=== PATIENT | female | born 1955 | race Caucasian/White ===

== ENCOUNTER → 2016-08-20 | Outpatient (CLI) | payer OTHER ==
[~2016-08-20] MED LIST: ATOR-54 PO; BUPRTAB51 PO; CARV6.252 PO; CLC100 PO; CLON1TAB3 PO; ERGO50002 PO; FLUO40CA8 PO; GABA300C19 PO; GADAVIST IV PRN; LEVE500T PO; LEVO125T72 PO; OMEP40CA PO; ZOLP5TAB PO
--- NOTE | 2016-08-20 12:59 | DIAGNOSTIC IMAGING REPORT ---
MRI OF THE BRAIN WITHOUT AND WITH IV CONTRAST SEIZURE PROTOCOL CLINICAL HISTORY: Paroxysmal spells. Severe headaches. COMPARISON STUDY: Head CT April 16, 2008. TECHNIQUE: Utilizing a 1.5 Chiara magnet and dedicated coil, multiplanar, multiecho imaging of the brain was performed pre and postcontrast administration. IV administration of 10 mL of Gadavist contrast was uneventful. Thin cut coronal T2 imaging was performed according to seizure protocol. FINDINGS: This exam is mildly compromised by motion artifact. There are no areas of restricted diffusion to suggest acute infarct. No acute intracranial hemorrhage, midline shift or mass effect is present. Brain volume is normal. Ventricular system is normal. Basilar cisterns are patent. Flow-voids for the major intracranial vessels are present. There are no intracranial masses or areas of pathologic enhancement. There is no evidence for a Chiari 1 malformation. There are numerous small white matter T2 hyperintense foci predominantly within the bilateral frontal lobes. Calvarial signal is maintained. Orbits and sinuses are unremarkable. There is no MRI evidence for mesial temporal sclerosis. IMPRESSION: 1. No acute intracranial findings. 2. No intracranial masses or pathologic enhancement. 3. Numerous white matter T2 hyperintense foci. These are nonspecific and could reflect small vessel disease or sequela of migraine headaches. The appearance is not suggestive of multiple sclerosis. Electronically signed by: Randolph Solis M.D. 08/20/2016 12:57 PM Dictated Date/Time: 08/20/2016 12:51 PM
== END | disposition home or self-care (01) ==
LOC: C.MRIBC 11:04
PROVIDERS: ATTEND Psychiatry & Neurology Neurology
DX: R68.89 Other general symptoms and signs (principal); R90.82 White matter disease, unspecified

== ENCOUNTER → 2016-08-20 | Outpatient (CLI) | payer OTHER ==
[~2016-08-20] MED LIST changes: -GADAVIST IV PRN
--- NOTE | 2016-08-21 13:53 | EEG Procedure Note ---
EEG Procedure Note Date of Service Aug 20, 2016. Start / End Times Start Time: 1:27 PM End Time: 1:47 PM Referring Physician ARGENIS Almanza History 61-year-old female with paroxysmal spells and memory trouble. EEG for further evaluation of possible seizure etiology. Pertinent Home Medications: [facility] Home Medication List Scheduled Atorvastatin (Lipitor), 20 MG PO DAILY Bupropion (Wellbutrin-Xl), 300 MG PO DAILY Carvedilol (Coreg), 6.25 MG PO BID Clonazepam (Klonopin), 1 MG PO HS Docusate Sodium (Docusate Sodium), 100 MG PO BID Ergocalciferol (Drisdol), 50,000 UNIT PO WK Fluoxetine (Prozac), 80 MG PO DAILY Gabapentin (Neurontin), 300 MG PO DAILY Levetiractam (Levetiracetam), 500 MG PO BID Levothyroxine Sodium (Synthroid), 125 MCG PO DAILY Omeprazole (Prilosec), 40 MG PO DAILY Scheduled PRN Zolpidem Tartrate (Ambien), 5-10 MG PO HS PRN for Sleep Description This is a 21 electrode EEG with a single channel dedicated to limited EKG. The electrodes were placed in accordance with the International 10-20 system. At the start of the recording the patient was in an awake state. Background was well organized and composed of symmetric mixed alpha and beta frequencies. There was a symmetric well-formed moderate amplitude 8-9 Hz posterior dominant rhythm that was reactive to eye opening and closure. Hyperventilation was not done. Intermittent photic stimulation at various frequencies produced no abnormalities. There was no state changes or sleep transients. Interpretation This is a normal awake only routine EEG. There was no electrographic seizures or epileptiform discharges. Clinical Correlation A normal EEG does not rule out epilepsy if there is a strong clinical suspicion.
== END | disposition home or self-care (01) ==
LOC: C.NEUR 12:55
PROVIDERS: ATTEND Psychiatry & Neurology Neurology
DX: R68.89 Other general symptoms and signs (principal)

== ENCOUNTER → 2017-03-05 | Outpatient (CLI) | payer OTHER ==
--- NOTE | 2017-03-06 07:55 | MAMMOGRAPHY REPORT ---
BILATERAL DIGITAL SCREENING MAMMOGRAM TOMOSYNTHESIS WITH CAD: 03/05/2017 CLINICAL HISTORY: Routine screening. Patient has no complaints. TECHNIQUE: Breast tomosynthesis in addition to standard 2D mammography was performed. Current study was also evaluated with a Computer Aided Detection (CAD) system. COMPARISON: Comparison is made to exam dated: 07/07/2014 mammogram - [facility]. BREAST COMPOSITION: There are scattered areas of fibroglandular density in both breasts. FINDINGS: No suspicious mass, architectural distortion or cluster of microcalcifications is seen. IMPRESSION: ACR BI-RADS CATEGORY 1: NEGATIVE There is no mammographic evidence of malignancy. A 1 year screening mammogram is recommended. The pa tient will receive written notification of the results. Approximately 10% of breast cancers are not detected with mammography. A negative mammographic report should not delay biopsy if a clinically suggestive mass is present. Yana Cheney M.D. ay/:03/05/2017 18:25:03 Senior Oracle Developer: Neda NORMAN(Tonya)(Meredith), [facility] letter sent: Normal 1/2 BI-RADS Code: ACR BI-RADS Category 1: Negative
== END | disposition home or self-care (01) ==
LOC: C.MAMM 14:25
PROVIDERS: ATTEND Physician Assistant
DX: Z12.31 Encounter for screening mammogram for malignant neoplasm of breast (principal)

== ENCOUNTER → 2017-03-05 | Outpatient (CLI) | payer OTHER ==
[2017-03-05 16:37] LABS: HEMATOCRIT 38.8 % (37-47); MEAN CELL VOLUME 88.2 fL (80-100); MEAN CORPUSCULAR HEMOGLOBIN 29.8 pg (25-34); MEAN CORPUSCULAR HGB CONC 33.8 g/dl (32-36); MEAN PLATELET VOLUME 10.2 fL (7.4-10.4); PLATELET COUNT 233 K/uL (130-400); WHITE BLOOD COUNT 7.29 K/uL (4.8-10.8)
[2017-03-05 16:45] LABS: URINE APPEARANCE CLEAR (CLEAR); URINE BILIRUBIN NEG (NEG); URINE COLOR DK YELLOW; URINE NITRITE NEG (NEG); UROBILINOGEN NEG (NEG)
[2017-03-05 16:57] LABS: MANUAL MICROSCOPIC REQUIRED? NO; REVIEW REQ? NO
[2017-03-05 17:09] LABS: ALT/SGPT 28 U/L (12-78); BLOOD UREA NITROGEN 13 mg/dl (7-18); CALCIUM 8.4 mg/dl (8.5-10.1); CARBON DIOXIDE 31 mmol/L (21-32); CHLORIDE 102 mmol/L (98-107); CHOLESTEROL 190 mg/dl (0-200); CREATININE 0.76 mg/dl (0.60-1.20); GLUCOSE 79 mg/dl (70-99); POTASSIUM 3.5 mmol/L (3.5-5.1); SODIUM 139 mmol/L (136-145); URIC ACID 5.5 mg/dl (2.6-7.2)
[2017-03-05 17:19] LABS: ALB/GLOB RATIO 0.8 (0.9-2); ALKALINE PHOSPHATASE 72 U/L (45-117); AST/SGOT 26 U/L (15-37); CHOLESTEROL/HDL RATIO 3.5; HDL CHOLESTEROL 54 mg/dl; LDL CHOLESTEROL CALCULATED 111 mg/dl; TRIGLYCERIDES 127 mg/dl (0-150); VERY LOW DENSITY LIPOPROT CALC 25 mg/dl
== END | disposition home or self-care (01) ==
LOC: C.LAB1850 14:56
PROVIDERS: ATTEND Physician Assistant
DX: G89.4 Chronic pain syndrome (principal); M54.5 Low back pain; K21.0 Gastro-esophageal reflux disease with esophagitis; E03.9 Hypothyroidism, unspecified; E55.9 Vitamin D deficiency, unspecified; F44.5 Conversion disorder with seizures or convulsions; F41.1 Generalized anxiety disorder

== ENCOUNTER 2017-07-01 21:17 | Inpatient (IN) | payer OTHER ==
[~2017-07-01] VITALS: Ht 167.6 cm; Wt 114.1 kg
[~2017-07-01 21:17] MED LIST changes: +CLON1TAB10 PO; -CLON1TAB3 PO; -ERGO50002 PO; +GABA-1218 PO; -GABA300C19 PO; +[UNRECOGNIZED DRUG - CODE] PO
[2017-07-01] MEDS ORDERED: SODIUM CHLORIDE 0.9% 1000ML 1,000 ML IV STA ×2 (21:38→23:57)
[2017-07-01] MEDS ORDERED: LIDOCAINE HCL 2% VISC SOLN 20 ML UDC PO STA (21:38)
[2017-07-01] MEDS ORDERED: ONDANSETRON INJ 2 MG/ML 2 ML VIAL IV STA (21:38)
[2017-07-01] MEDS ORDERED: ALUMINUM/MAGNESIUM SUSP 30 ML UDC PO STA (21:38)
[2017-07-01] MEDS ORDERED: HYDROmorphone INJ 1 MG/ML SYR IV STA ×2 (21:38→23:26)
[2017-07-01] MEDS ORDERED: OPTIRAY 320 IV PRN (21:45)
[2017-07-01 22:05] LABS: BASO % 0.2 %; BASO ABS # 0.03 K/uL (0-0.2); EOS ABS # 0.15 K/uL (0-0.5); HEMATOCRIT 42.7 % (37-47); HEMOGLOBIN 14.2 g/dL (12.0-16.0); IG# 0.03 K/uL (0.00-0.02); LYMPH % 13.8 %; LYMPH ABS # 1.99 K/uL (1.2-3.4); MEAN CELL VOLUME 88.6 fL (80-100); MEAN CORPUSCULAR HEMOGLOBIN 29.5 pg (25-34); MEAN CORPUSCULAR HGB CONC 33.3 g/dl (32-36); MEAN PLATELET VOLUME 10.1 fL (7.4-10.4); MONO % 6.4 %; MONO ABS # 0.92 K/uL (0.11-0.59); NEUT % 78.4 %; NEUT ABS # 11.35 K/uL (1.4-6.5); PLATELET COUNT 265 K/uL (130-400); RED CELL DISTRIBUTION WIDTH CV 13.5 % (11.5-14.5); WHITE BLOOD COUNT 14.47 K/uL (4.8-10.8)
--- NOTE | 2017-07-01 22:05 | DIAGNOSTIC IMAGING REPORT ---
CHEST ONE VIEW PORTABLE CLINICAL HISTORY: 62 years-old Female presenting with epigastric pain. TECHNIQUE: Portable upright AP view of the chest was obtained. COMPARISON: 06/03/2015. FINDINGS: Atherosclerosis of the aortic arch. Cardiac silhouette normal in size. Lungs and pleural spaces clear. Osseous structures normal. Upper abdomen normal. IMPRESSION: 1. No acute cardiopulmonary disease. Electronically signed by: Damian Gómez M.D. 07/01/2017 10:04 PM Dictated Date/Time: 07/01/2017 10:03 PM
[2017-07-01] MEDS ORDERED: CLR10 PO (22:10)
[2017-07-01] MEDS ORDERED: LEVE500T13 PO (22:10)
[2017-07-01] MEDS ORDERED: DOCU100C31 PO (22:10)
[2017-07-01] MEDS ORDERED: ATV/1 PO (22:10)
[2017-07-01] MEDS ORDERED: OMEP40CA41 PO (22:10)
[2017-07-01 22:27] LABS: ALBUMIN 3.9 gm/dl (3.4-5.0); ALT/SGPT 22 U/L (12-78); BLOOD UREA NITROGEN 27 mg/dl (7-18); CALCIUM 8.8 mg/dl (8.5-10.1); CARBON DIOXIDE 30 mmol/L (21-32); CREATININE 1.08 mg/dl (0.60-1.20); GLUCOSE 110 mg/dl (70-99); POTASSIUM 3.7 mmol/L (3.5-5.1); SODIUM 136 mmol/L (136-145)
[2017-07-01 22:32] LABS: ALKALINE PHOSPHATASE 85 U/L (45-117); AST/SGOT 19 U/L (15-37); LIPASE 4734 U/L (73-393); TOTAL PROTEIN 8.7 gm/dl (6.4-8.2)
--- NOTE | 2017-07-01 23:07 | DIAGNOSTIC IMAGING REPORT ---
ABD/PELVIS IV CONTRAST ONLY CLINICAL HISTORY: 62 years-old Female presenting with severe mid abd pain. TECHNIQUE: Multidetector CT of the abdomen and pelvis was performed after the administration of intravenous contrast. IV contrast: 93 mL of Optiray 320. A dose lowering technique was used consistent with the principles of ALARA (as low as reasonably achievable). COMPARISON: 06/11/2016. CT DOSE (mGy.cm): The estimated cumulative dose is 1654.55 mGy.cm. FINDINGS: Healthcare Project Manager topogram: Cholecystectomy clips. Posterior lumbar fusion hardware. Lung bases: Minimal basilar opacities, likely atelectasis. Multichamber enlargement of the heart. No pericardial or pleural effusion. Liver: Normal morphology. No liver lesion. Patent hepatic vasculature. Biliary: Mild biliary ductal prominence likely a reservoir effect in the post cholecystectomy state. Gallbladder surgically absent. Pancreas: Fat stranding along the pancreatic head. Remainder of the pancreatic parenchyma is mildly atrophic. No peripancreatic fluid collection. Spleen: Normal. Adrenal glands: Normal. Kidneys and ureters: Few hypodensities in the right kidney likely cysts. Punctate nonobstructing calculus in the left kidney. No hydronephrosis. Ureters normal. Bladder: Incompletely evaluated secondary to underdistention. Pelvic organs: Uterus surgically absent. Bowel: Diverticulosis of the proximal sigmoid colon. The appendix is normal. No bowel obstruction. Peritoneal cavity: No free fluid or intraperitoneal gas. Lymph nodes: No enlarged lymph nodes in the abdomen or pelvis. Vasculature: Atherosclerosis of the normal caliber abdominal aorta. IVC patent. Abdominal wall: Postsurgical changes of the infraumbilical midline ventral abdominal wall. Musculoskeletal: Extensive posterior fusion hardware of the lower lumbar spine. IMPRESSION: 1. Evidence of interstitial edematous pancreatitis. No acute peripancreatic fluid collection. No commencing evidence of necrosis. Correlate with lipase. 2. Diverticulosis. No evidence of diverticulitis. Electronically signed by: Damian Gómez M.D. 07/01/2017 11:06 PM Dictated Date/Time: 07/01/2017 11:00 PM
[2017-07-02] VITALS (8 sets, daily range): BP systolic 120–169; BP diastolic 76–99; PULSE 73–90; TEMP 36.5–37.1; O2SAT 91–96; Ht 167.6 cm; Wt 114.1 kg
--- NOTE | 2017-07-02 00:32 | EMERGENCY ROOM VISIT NOTE ---
History First contact with patient: 21:29 Chief Complaint: GI ASSESSMENT Stated Complaint: BACK PAIN, PAIN THAT GOES TO FRONT Nursing Triage Summary: pain in stomach, back, and sides. started last night and has gotten worse History of Present Illness The patient is a 62 year old female who presents to the Emergency Room with complaints of severe abdominal pain that radiates to her back for the past day steadily getting worse currently 12 out of 10. Describes as severe, ranging in severity nothing makes it better or worse. Negative colonoscopy and endoscopies in the past. Status post cholecystectomy in the past. Patient does not drink alcohol. Patient denies chest pain, dyspnea, fever, chills, vomiting, diarrhea, urinary symptoms. Patient with some nausea. No bad food exposure. Patient's 3 months ago. Review of Systems See HPI for pertinent positives & negatives. A total of 10 systems reviewed and were otherwise negative. Past Medical/Surgical History Medical Problems: (1) Abdominal pain (2) Back pain (3) Cardiomegaly (4) Hypertension (5) Nausea & vomiting Surgical Problems: (1) H/O thyroidectomy Family History Cancer Diabetes mellitus Heart disease Hypertension Social History Smoking Status: Former Smoker Alcohol Use: none Drug Use: none Marital Status: Housing Status: lives with family Occupation Status: employed Current/Historical Medications Scheduled Atorvastatin (Lipitor), 20 MG PO DAILY Bupropion (Wellbutrin-Xl), 300 MG PO DAILY Carvedilol (Coreg), 6.25 MG PO BID Docusate Sodium (Docusate Sodium), 100 MG PO BID Ergocalciferol (Drisdol), 50,000 INTER.UNIT PO WK Fluoxetine (Prozac), 80 MG PO HS Levetiracetam (Keppra), 500 MG PO BID Levothyroxine Sodium (Synthroid), 125 MCG PO DAILY Loratadine (Claritin), 10 MG PO DAILY Omeprazole (Prilosec), 40 MG PO DAILY Scheduled PRN Lorazepam (Ativan), 1 MG PO TID PRN for Anxiety Physical Exam Vital Signs Date Time Temp Pulse Resp B/P (MAP) Pulse Ox O2 Delivery O2 Flow Rate FiO2 07/01/17 23:22 78 16 162/94 96 Room Air 07/01/17 22:08 93 Room Air 07/01/17 21:21 36.7 88 18 163/99 97 Room Air Physical Exam VITALS: Vitals are noted on the nurse's note and reviewed by myself. Vital signs hypertensive GENERAL: Pleasant female screaming in pain nondiaphoretic, well-developed well- nourished. SKIN: The skin was without rashes, erythema, edema, or bruising. There is no tenting of the skin. Capillary reflex less than 2 seconds. HEAD: Normocephalic atraumatic. EARS: External auditory canals clear, tympanic membranes pearly espinoza without erythema or effusion bilaterally. EYES: Pupils equal round and reactive to light and accommodation. Conjunctivae without injection, sclerae without icterus. Extraocular movements intact. NOSE: Patent, turbinates without inflammation or discharge. MOUTH: Mucous membranes moist. Pharynx without erythema or exudate. Uvula midline. Airway patent. Tongue does not deviate. NECK: Supple without nuchal rigidity. No lymphadenopathy. No thyromegaly. Cervical spine is nontender. No JVD. HEART: Regular rate and rhythm LUNGS: Clear to auscultation bilaterally without wheezes, rales or rhonchi. No dullness to percussion. No retractions or accessory muscle use. ABDOMEN: Positive bowel sounds x 4. Normal tympanic percussion. Soft, diffusely tender to palpation, protuberant, obese, no CVA tenderness, without masses or organomegaly. Pruett sign negative. No guarding or rebound tenderness. MUSCULOSKELETAL: No muscle atrophy, erythema, noted. NEURO: Patient was alert and oriented to person place and time. Normal sensation to light and sharp touch. No focal neurological deficits. Medical Decision & Procedures Laboratory Results 07/01/17 21:50 Red Blood Count 4.82, Mean Corpuscular Volume 88.6, Mean Corpuscular Hemoglobin 29.5, Mean Corpuscular Hemoglobin Concent 33.3, Mean Platelet Volume 10.1, Neutrophils (%) (Auto) 78.4, Lymphocytes (%) (Auto) 13.8, Monocytes (%) (Auto) 6.4, Eosinophils (%) (Auto) 1.0, Basophils (%) (Auto) 0.2, Neutrophils # (Auto) 11.35, Lymphocytes # (Auto) 1.99, Monocytes # (Auto) 0.92, Eosinophils # (Auto) 0.15, Basophils # (Auto) 0.03 07/01/17 21:50 Test 07/01/17 21:50 07/01/17 21:54 White Blood Count 14.47 K/uL (4.8-10.8) Red Blood Count 4.82 M/uL (4.2-5.4) Hemoglobin 14.2 g/dL (12.0-16.0) Hematocrit 42.7 % (37-47) Mean Corpuscular Volume 88.6 fL (80-100) Mean Corpuscular Hemoglobin 29.5 pg (25-34) Mean Corpuscular Hemoglobin Concent 33.3 g/dl (32-36) Platelet Count 265 K/uL (130-400) Mean Platelet Volume 10.1 fL (7.4-10.4) Neutrophils (%) (Auto) 78.4 % Lymphocytes (%) (Auto) 13.8 % Monocytes (%) (Auto) 6.4 % Eosinophils (%) (Auto) 1.0 % Basophils (%) (Auto) 0.2 % Neutrophils # (Auto) 11.35 K/uL (1.4-6.5) Lymphocytes # (Auto) 1.99 K/uL (1.2-3.4) Monocytes # (Auto) 0.92 K/uL (0.11-0.59) Eosinophils # (Auto) 0.15 K/uL (0-0.5) Basophils # (Auto) 0.03 K/uL (0-0.2) RDW Standard Deviation 44.0 fL (36.4-46.3) RDW Coefficient of Variation 13.5 % (11.5-14.5) Immature Granulocyte % (Auto) 0.2 % Immature Granulocyte # (Auto) 0.03 K/uL (0.00-0.02) Urine Color YELLOW Urine Appearance CLOUDY (CLEAR) Urine pH 5.0 (4.5-7.5) Urine Specific [place] 1.032 (1.000-1.030) Urine Protein NEG (NEG) Urine Glucose (UA) NEG (NEG) Urine Ketones TRACE (NEG) Urine Occult Blood 1+ (NEG) Urine Nitrite NEG (NEG) Urine Bilirubin NEG (NEG) Urine Urobilinogen NEG (NEG) Urine Leukocyte Esterase NEG (NEG) Urine WBC (Auto) 1-5 /hpf (0-5) Urine RBC (Auto) 0-4 /hpf (0-4) Urine Hyaline Casts (Auto) 5-10 /lpf (0-5) Urine Epithelial Cells (Auto) >30 /lpf (0-5) Urine Bacteria (Auto) NEG (NEG) Urine Yeast (Auto) PRESENT (NONE PRSENT) Anion Gap 7.0 mmol/L (3-11) Est Creatinine Clear Calc Drug Dose 70.7 ml/min Estimated GFR () 64.6 Estimated GFR (Non- 55.8 BUN/Creatinine Ratio 25.2 (10-20) Calcium Level 8.8 mg/dl (8.5-10.1) Total Bilirubin 0.3 mg/dl (0.2-1) Direct Bilirubin < 0.1 mg/dl (0-0.2) Aspartate Amino Transf (AST/SGOT) 19 U/L (15-37) Alanine Aminotransferase (ALT/SGPT) 22 U/L (12-78) Alkaline Phosphatase 85 U/L (45-117) Bedside Troponin I < 0.030 ng/ml (0-0.045) Troponin I < 0.015 ng/ml (0-0.045) Total Protein 8.7 gm/dl (6.4-8.2) Albumin 3.9 gm/dl (3.4-5.0) Lipase 4734 U/L (73-393) Bedside Lactic Acid Venous 0.78 mmol/L (0.90-1.70) Medications Administered Medications (Trade) Dose Ordered Sig/Asiya Route Start Time Stop Time Status Last Admin Dose Admin Sodium Chloride 1,000 ml @ 999 mls/hr Q1H1M STAT IV 07/01/17 21:38 07/01/17 22:38 DC 07/01/17 21:53 999 MLS/HR Ondansetron HCl (Zofran Inj) 4 mg NOW STAT IV 07/01/17 21:38 07/01/17 21:41 DC 07/01/17 21:52 4 MG Hydromorphone HCl (Dilaudid Inj) 1 mg NOW STAT IV 07/01/17 21:38 07/01/17 21:41 DC 07/01/17 21:52 1 MG Lidocaine HCl (Viscous Lidocaine 2% Soln) 10 ml NOW STAT PO 07/01/17 21:38 07/01/17 21:41 DC 07/01/17 21:52 10 ML Al Hydroxide/Mg Hydroxide (Maalox Susp) 30 ml NOW STAT PO 07/01/17 21:38 07/01/17 21:41 DC 07/01/17 21:52 30 ML Hydromorphone HCl (Dilaudid Inj) 1 mg NOW STAT IV 07/01/17 23:26 07/01/17 23:27 DC 07/01/17 23:33 1 MG Sodium Chloride 1,000 ml @ 999 mls/hr Q1H1M STAT IV 07/01/17 23:57 07/02/17 00:57 07/01/17 23:57 999 MLS/HR ED Course Prior records/ancillary studies reviewed. Triage Nursing notes reviewed. The patient's history was concerning for abdominal pain. Differential diagnosis: Etiologies such as appendicitis, diverticulitis, cardiac, PUD, biliary pathology , UTI, pancreatitis, obstruction, mesenteric ischemia, aortic pathology, infections, inflammatory bowel disease, renal colic, as well as others were entertained. Physical examination findings: As above. ER treatment provided: Dilaudid, Zofran, IV fluids On reassessment the patient felt better. Diagnostics interpreted by me: ECG: Normal sinus, normal axis, no acute ST-T wave changes, rate of 85. Impression normal sinus interpreted by myself The labs revealed leukocytosis. Elevated lipase. Negative troponin. Negative lactic acid Imaging studies: ABD/PELVIS IV CONTRAST ONLY CLINICAL HISTORY: 62 years-old Female presenting with severe mid abd pain. TECHNIQUE: Multidetector CT of the abdomen and pelvis was performed after the administration of intravenous contrast. IV contrast: 93 mL of Optiray 320. A dose lowering technique was used consistent with the principles of ALARA (as low as reasonably achievable). COMPARISON: 06/11/2016. CT DOSE (mGy.cm): The estimated cumulative dose is 1654.55 mGy.cm. FINDINGS: Analytics Senior Manager topogram: Cholecystectomy clips. Posterior lumbar fusion hardware. Lung bases: Minimal basilar opacities, likely atelectasis. Multichamber enlargement of the heart. No pericardial or pleural effusion. Liver: Normal morphology. No liver lesion. Patent hepatic vasculature. Biliary: Mild biliary ductal prominence likely a reservoir effect in the post cholecystectomy state. Gallbladder surgically absent. Pancreas: Fat stranding along the pancreatic head. Remainder of the pancreatic parenchyma is mildly atrophic. No peripancreatic fluid collection. Spleen: Normal. Adrenal glands: Normal. Kidneys and ureters: Few hypodensities in the right kidney likely cysts. Punctate nonobstructing calculus in the left kidney. No hydronephrosis. Ureters normal. Bladder: Incompletely evaluated secondary to underdistention. Pelvic organs: Uterus surgically absent. Bowel: Diverticulosis of the proximal sigmoid colon. The appendix is normal. No bowel obstruction. Peritoneal cavity: No free fluid or intraperitoneal gas. Lymph nodes: No enlarged lymph nodes in the abdomen or pelvis. Vasculature: Atherosclerosis of the normal caliber abdominal aorta. IVC patent. Abdominal wall: Postsurgical changes of the infraumbilical midline ventral abdominal wall. Musculoskeletal: Extensive posterior fusion hardware of the lower lumbar spine. IMPRESSION: 1. Evidence of interstitial edematous pancreatitis. No acute peripancreatic fluid collection. No commencing evidence of necrosis. Correlate with lipase. 2. Diverticulosis. No evidence of diverticulitis. CHEST ONE VIEW PORTABLE CLINICAL HISTORY: 62 years-old Female presenting with epigastric pain. TECHNIQUE: Portable upright AP view of the chest was obtained. COMPARISON: 06/03/2015. FINDINGS: Atherosclerosis of the aortic arch. Cardiac silhouette normal in size. Lungs and pleural spaces clear. Osseous structures normal. Upper abdomen normal. IMPRESSION: 1. No acute cardiopulmonary disease. Electronically signed by: Damian Gómez M.D. Electronically signed by: Damian Gómez M.D. Consultation: A consultation was placed with the hospitalist, Dr. Rutledge. The case was discussed and diagnostics were reviewed. The patient was evaluated in the ER for further treatment. Exam and history seem consistent with acute pancreatitis. Patient was medicated as above. She felt better. She was still having severe pain though. She will be evaluated by medicine for possible admission. Patient does not drink alcohol. Status post cholecystectomy many years ago. By the evaluation outlined above emergent etiologies such as appendicitis, diverticulitis, PUD, biliary pathology, UTI, obstruction, mesenteric ischemia, aortic pathology, inflammatory bowel disease, renal colic, as well as others were deemed relatively unlikely. The pt informed about the findings as listed above. All questions were answered and pleased with the treatment. Case reviewed with my attending. The chart was completed utilizing [employer] voice recognition software. Grammatical errors, random word insertions, pronoun errors, and incomplete sentences are an occassional consequence of this system due to software limitations, ambient noise, and hardware issues. Any formal questions or concerns about the content, text, or information contained within the body of this dictation should be directly addressed to the physician medical assistant dermatology for clarification. Medical Decision As above Medication Reconcilliation Current Medication List: was personally reviewed by me Blood Pressure Screening Patient's blood pressure: Elevated blood pressure Blood pressure disposition: Elevated BP felt to be situational Impression Primary Impression: Pancreatitis Departure Information Dispostion Being Evaluated By Hospitalist Condition GOOD Referrals Jennifer. Billy E. PA-C (PCP) Patient Instructions My [facility] Problem Qualifiers Primary Impression: Pancreatitis Chronicity: acute Pancreatitis type: unspecified pancreatitis type Acute pancreatitis complication: unspecified Qualified Codes: K85.90 - Acute pancreatitis without necrosis or infection, unspecified
[2017-07-02] MEDS ORDERED: ACETAMINOPHEN 325 MG TAB PO PRN (00:45)
--- NOTE | 2017-07-02 01:30 | NUR ---
Admission: Received report from Brando RN. Pt. arrived to unit at approx. 01:10. Pt. A+Ox4. Ambulates with steady gait. Reports 8/10 abdominal pain. VSS on room air. Fall risk agreement and code word paperwork signed. Pt. oriented to room and call lr. Encouraged to ring for assistance OOB. Will continue to monitor.
[2017-07-02] MEDS: LORAZEPAM 1 MG TAB PO PRN ×3 (01:43→21:47)
[2017-07-02] MEDS: TRAMADOL HCL 50 MG TAB PO PRN ×3 (01:43→16:26)
[2017-07-02] MEDS ORDERED: NSS + 20MEQ KCL 1000ML 1,000 ML IV SCH (02:00)
[2017-07-02] MEDS: LEVETIRACETAM 500 MG TAB PO SCH ×3 (02:27→21:08)
[2017-07-02] MEDS: KETOROLAC TROMETHAMINE 30 MG/ML VIAL IV PRN ×3 (02:27→14:35)
--- NOTE | 2017-07-02 04:07 | History and Physical ---
History & Physical Date & Time of Service: Jul 02, 2017 at 03:59 Chief Complaint: Abdominal Pain, Pancreatitis Primary Care Physician: Sisi Billy.Charline PA-C History of Present Illness Source: patient, hospital records The patient is a 62-year-old female who presents to the emergency department with severe abdominal pain that radiates from her stomach to her back. She reports that the pain began 24 hours ago, and is accompanied by some nausea but no vomiting. She reports no questionable food intake. She has not had any recent travel or sick exposures that she is aware of. She has had normal colon colonoscopy and endoscopies in the past. She has had pancreatitis in the past with unknown cause, and is status post cholecystectomy. Past Medical/Surgical History Medical Problems: (1) Cardiomegaly Status: Chronic (2) Hypertension Status: Chronic Surgical Problems: (1) H/O thyroidectomy Status: Chronic Family History Cancer Diabetes mellitus Heart disease Hypertension Social History Smoking Status: Former Smoker Smokeless Tobacco Use: No Alcohol Use: none Drug Use: none Marital Status: Occupational Status: employed Immunizations History of Influenza Vaccine: Yes History of Tetanus Vaccine?: Yes History of Pneumococcal: Yes History of Hepatitis B Vaccine: No Multi-Drug Resistant Organisms History of MDRO: No Allergies Coded Allergies: No Known Allergies (Unverified , NONE, 06/10/16) Home Medications Scheduled Atorvastatin (Lipitor), 20 MG PO DAILY Bupropion (Wellbutrin-Xl), 300 MG PO DAILY Carvedilol (Coreg), 6.25 MG PO BID Docusate Sodium (Docusate Sodium), 100 MG PO BID Ergocalciferol (Drisdol), 50,000 INTER.UNIT PO WK Fluoxetine (Prozac), 80 MG PO HS Levetiracetam (Keppra), 500 MG PO BID Levothyroxine Sodium (Synthroid), 125 MCG PO DAILY Loratadine (Claritin), 10 MG PO DAILY Omeprazole (Prilosec), 40 MG PO DAILY Scheduled PRN Lorazepam (Ativan), 1 MG PO TID PRN for Anxiety Review of Systems The patient denies chest pain, palpitations, shortness of breath, cough, lower extremity swelling, sore throat, fevers, chills, sweats, vomiting, diarrhea or constipation, blood in urine or stool, dysuria, urinary frequency or urgency, lightheadedness , dizziness, headache, memory loss, loss of consciousness, rash, abnormal bruising or bleeding, imbalance, focal or generalized weakness, numbness or tingling in arms or legs, generalized arthralgias or myalgias, back or neck pain, or night sweats. The review of systems is otherwise negative other than for that already noted above, and at least 10 systems have been reviewed. Physical Exam Vital Signs Date Time Temp Pulse Resp B/P (MAP) Pulse Ox O2 Delivery O2 Flow Rate FiO2 07/02/17 01:30 36.7 73 16 134/83 92 Room Air 07/02/17 00:46 79 16 154/90 93 Room Air 07/01/17 23:22 78 16 162/94 96 Room Air 07/01/17 22:08 93 Room Air 07/01/17 21:21 36.7 88 18 163/99 97 Room Air The patient is awake, well-developed and adequately nourished, alert and oriented 3, normocephalic and atraumatic, lying in bed and in no acute distress status post pain medication. HEENT--PERRL, EOMI, mucous membranes and oropharynx dry. Neck--supple, no JVD or bruits, thyroid normal, trachea midline, no adenopathy. Heart--normal S1 and S2, no extra beats, no murmurs, rubs or gallops. Lungs--clear bilaterally with good air movement, no respiratory distress, no accessory muscle use. Abdomen--normal bowel sounds and soft, nontender and nondistended, no hernias or masses, no organomegaly. Extremities--no cyanosis, clubbing or edema. There are good distal pulses b/l. Dermatologic--normal skin turgor, normal color, warm and dry, no abnormal lymph nodes, no rash. Neurologic--cranial nerves II through XII grossly intact. Rheumatologic--normal range of motion. Psychiatric--normal affect. Diagnostics Laboratory Results Results Past 24 Hours Test 07/01/17 21:50 07/01/17 21:54 Range/Units White Blood Count 14.47 4.8-10.8 K/uL Red Blood Count 4.82 4.2-5.4 M/uL Hemoglobin 14.2 12.0-16.0 g/dL Hematocrit 42.7 37-47 % Mean Corpuscular Volume 88.6 80-100 fL Mean Corpuscular Hemoglobin 29.5 25-34 pg Mean Corpuscular Hemoglobin Concent 33.3 32-36 g/dl Platelet Count 265 130-400 K/uL Mean Platelet Volume 10.1 7.4-10.4 fL Neutrophils (%) (Auto) 78.4 % Lymphocytes (%) (Auto) 13.8 % Monocytes (%) (Auto) 6.4 % Eosinophils (%) (Auto) 1.0 % Basophils (%) (Auto) 0.2 % Neutrophils # (Auto) 11.35 1.4-6.5 K/uL Lymphocytes # (Auto) 1.99 1.2-3.4 K/uL Monocytes # (Auto) 0.92 0.11-0.59 K/uL Eosinophils # (Auto) 0.15 0-0.5 K/uL Basophils # (Auto) 0.03 0-0.2 K/uL RDW Standard Deviation 44.0 36.4-46.3 fL RDW Coefficient of Variation 13.5 11.5-14.5 % Immature Granulocyte % (Auto) 0.2 % Immature Granulocyte # (Auto) 0.03 0.00-0.02 K/uL Urine Color YELLOW Urine Appearance CLOUDY CLEAR Urine pH 5.0 4.5-7.5 Urine Specific [place] 1.032 1.000-1.030 Urine Protein NEG NEG Urine Glucose (UA) NEG NEG Urine Ketones TRACE NEG Urine Occult Blood 1+ NEG Urine Nitrite NEG NEG Urine Bilirubin NEG NEG Urine Urobilinogen NEG NEG Urine Leukocyte Esterase NEG NEG Urine WBC (Auto) 1-5 0-5 /hpf Urine RBC (Auto) 0-4 0-4 /hpf Urine Hyaline Casts (Auto) 5-10 0-5 /lpf Urine Epithelial Cells (Auto) >30 0-5 /lpf Urine Bacteria (Auto) NEG NEG Urine Yeast (Auto) PRESENT NONE PRSENT Sodium Level 136 136-145 mmol/L Potassium Level 3.7 3.5-5.1 mmol/L Chloride Level 99 98-107 mmol/L Carbon Dioxide Level 30 21-32 mmol/L Anion Gap 7.0 3-11 mmol/L Blood Urea Nitrogen 27 7-18 mg/dl Creatinine 1.08 0.60-1.20 mg/dl Est Creatinine Clear Calc Drug Dose 70.7 ml/min Estimated GFR () 64.6 Estimated GFR (Non- 55.8 BUN/Creatinine Ratio 25.2 10-20 Random Glucose 110 70-99 mg/dl Calcium Level 8.8 8.5-10.1 mg/dl Total Bilirubin 0.3 0.2-1 mg/dl Direct Bilirubin < 0.1 0-0.2 mg/dl Aspartate Amino Transf (AST/SGOT) 19 15-37 U/L Alanine Aminotransferase (ALT/SGPT) 22 12-78 U/L Alkaline Phosphatase 85 45-117 U/L Bedside Troponin I < 0.030 0-0.045 ng/ml Troponin I < 0.015 0-0.045 ng/ml Total Protein 8.7 6.4-8.2 gm/dl Albumin 3.9 3.4-5.0 gm/dl Lipase 4734 73-393 U/L Bedside Lactic Acid Venous 0.78 0.90-1.70 mmol/L Microbiology Results 07/01/17 Urine Culture, Received Pending Diagnostic Radiology Patient Name: JULIA ACUNA Unit Number: [id number] Dictated: 07/01/172202 Transcribed: 07/01/172202 PBS Printed Date/Time: [~ rep prt dt]/[~ rep prt tm] [~ rep ct labl] - [~ rep ct ivnm] [facility] [place] [address] Dictated: 07/01/172202 Transcribed: 07/01/172202 PBS Printed Date/Time: [~ rep prt dt]/[~ rep prt tm] [~ rep ct labl] - [~ rep ct ivnm] [~ rep ct add3]] CHEST ONE VIEW PORTABLE CLINICAL HISTORY: 62 years-old Female presenting with epigastric pain. TECHNIQUE: Portable upright AP view of the chest was obtained. COMPARISON: 06/03/2015. FINDINGS: Atherosclerosis of the aortic arch. Cardiac silhouette normal in size. Lungs and pleural spaces clear. Osseous structures normal. Upper abdomen normal. IMPRESSION: 1. No acute cardiopulmonary disease. Electronically signed by: Damian Gómez M.D. 07/01/2017 10:04 PM Dictated Date/Time: 07/01/2017 10:03 PM The status of this report is Signed. Draft = Not yet reviewed or approved by Radiologist. Signed = Reviewed and approved by Radiologist. <AttendingPhy></AttendingPhy> <FamilyPhy>No Doctor, Assigned</FamilyPhy> < PrimaryPhy>No Doctor, Assigned</PrimaryPhy> <UnitNumber>[id number]</UnitNumber> <VisitNumber>[id number]</VisitNumber> <PatientName>JULIA ACUNA</PatientName > <DateOfBirth>1955</DateOfBirth> <Location>C.EDB</Location> <ServiceDate> 07/01/17</ServiceDate> <MNE>ESINDI</MNE> <OrderingPhy>Missy Gonzalez PA-C</ OrderingPhy> <OrderingPhyMNE>f rep ord dr gilbert</OrderingPhyMNE> <DictatingPhyMNE> f rep dict dr gilbert</DictatingPhyMNE> <CCListMNE>f rep ct mne</CCListMNE> < AdmittingPhyMNE>f pt admit dr gilbert</AdmittingPhyMNE> <AttendingPhyMNE>f pt attend dr gilbert</AttendingPhyMNE> <ConsultingPhyMNE>f pt consult dr gilbert</ConsultingPhyMNE> <FamilyPhyMNE>f pt fam dr gilbert</FamilyPhyMNE> <OtherPhyMNE>f pt other dr gilbert</OtherPhyMNE> < PrimaryPhyMNE>f pt prim care dr gilbert</PrimaryPhyMNE> <ReferringPhyMNE>f pt referring dr gilbert</ReferringPhyMNE> Patient Name: JULIA ACUNA Unit Number: [id number] Dictated: 07/01/172299 Transcribed: 07/01/172299 PBS Printed Date/Time: [~ rep prt dt]/[~ rep prt tm] [~ rep ct labl] - [~ rep ct ivnm] [facility] [place] [address] Dictated: 07/01/172299 Transcribed: 07/01/172299 PBS Printed Date/Time: [~ rep prt dt]/[~ rep prt tm] [~ rep ct labl] - [~ rep ct ivnm] [~ rep ct add3]] ABD/PELVIS IV CONTRAST ONLY CLINICAL HISTORY: 62 years-old Female presenting with severe mid abd pain. TECHNIQUE: Multidetector CT of the abdomen and pelvis was performed after the administration of intravenous contrast. IV contrast: 93 mL of Optiray 320. A dose lowering technique was used consistent with the principles of ALARA (as low as reasonably achievable). COMPARISON: 06/11/2016. CT DOSE (mGy.cm): The estimated cumulative dose is 1654.55 mGy.cm. FINDINGS: Set Up Inspector topogram: Cholecystectomy clips. Posterior lumbar fusion hardware. Lung bases: Minimal basilar opacities, likely atelectasis. Multichamber enlargement of the heart. No pericardial or pleural effusion. Liver: Normal morphology. No liver lesion. Patent hepatic vasculature. Biliary: Mild biliary ductal prominence likely a reservoir effect in the post cholecystectomy state. Gallbladder surgically absent. Pancreas: Fat stranding along the pancreatic head. Remainder of the pancreatic parenchyma is mildly atrophic. No peripancreatic fluid collection. Spleen: Normal. Adrenal glands: Normal. Kidneys and ureters: Few hypodensities in the right kidney likely cysts. Punctate nonobstructing calculus in the left kidney. No hydronephrosis. Ureters normal. Bladder: Incompletely evaluated secondary to underdistention. Pelvic organs: Uterus surgically absent. Bowel: Diverticulosis of the proximal sigmoid colon. The appendix is normal. No bowel obstruction. Peritoneal cavity: No free fluid or intraperitoneal gas. Lymph nodes: No enlarged lymph nodes in the abdomen or pelvis. Vasculature: Atherosclerosis of the normal caliber abdominal aorta. IVC patent. Abdominal wall: Postsurgical changes of the infraumbilical midline ventral abdominal wall. Musculoskeletal: Extensive posterior fusion hardware of the lower lumbar spine. IMPRESSION: 1. Evidence of interstitial edematous pancreatitis. No acute peripancreatic fluid collection. No commencing evidence of necrosis. Correlate with lipase. 2. Diverticulosis. No evidence of diverticulitis. Electronically signed by: Damian Gómez M.D. 07/01/2017 11:06 PM Dictated Date/Time: 07/01/2017 11:00 PM The status of this report is Signed. Draft = Not yet reviewed or approved by Radiologist. Signed = Reviewed and approved by Radiologist. <AttendingPhy></AttendingPhy> <FamilyPhy>Jennifer. Billy E. PA-C</FamilyPhy> <PrimaryPhy>Jennifer. Billy E. PA-C</PrimaryPhy> <UnitNumber>[id number]</ UnitNumber> <VisitNumber>[id number]</VisitNumber> <PatientName>JULIA ACUNA</ PatientName> <DateOfBirth>1955</DateOfBirth> <Location>C.EDB</Location> < ServiceDate>07/01/17</ServiceDate> <MNE>ESINDI</MNE> <OrderingPhy>Missy Gonzalez PA-C</OrderingPhy> <OrderingPhyMNE>f rep ord dr gilbert</OrderingPhyMNE> < DictatingPhyMNE>f rep dict dr gilbert</DictatingPhyMNE> <CCListMNE>f rep ct mne</ CCListMNE> <AdmittingPhyMNE>f pt admit dr gilbert</AdmittingPhyMNE> <AttendingPhyMNE >f pt attend dr gilbert</AttendingPhyMNE> <ConsultingPhyMNE>f pt consult dr gilbert</ConsultingPhyMNE> <FamilyPhyMNE>f pt fam dr gilbert</FamilyPhyMNE> <OtherPhyMNE>f pt other dr gilbert</OtherPhyMNE> < PrimaryPhyMNE>f pt prim care dr gilbert</PrimaryPhyMNE> <ReferringPhyMNE>f pt referring dr gilbert</ReferringPhyMNE> EKG EKG shows normal sinus rhythm at 85 bpm, no acute ST-T changes, and no change compared to 06/01/2015 Impression Assessment and Plan Recurrent pancreatitis-- The patient was admitted for similar symptoms from June 10 to 06/13/2016. Place on full liquid diet as tolerated. Start pancrelipase 2 tabs by mouth 3 times a day with meals. Tylenol for mild pain or temperature, tramadol for moderate pain, Toradol IV for severe pain Of note, patient was on a Dilaudid WAX BALL MOLDER during last hospitalization Hypertension-- Continue carvedilol 6.25 mg by mouth twice a day Anxiety/depression--continue Wellbutrin XL 3 mg by mouth daily, fluoxetine 80 mg by mouth at bedtime. Lorazepam 1 mg by mouth 3 times a day when necessary anxiety. GERD/constipation-- Change omeprazole to pantoprazole per hospital formulary Continue Colace 100 mg by mouth twice a day Seizure disorder-- Continue Keppra 500 mg by mouth twice a day. Hyperlipidemia-- Continue atorvastatin 20 mg by mouth daily. Hypothyroidism--continue levothyroxine sodium at 125 g by mouth daily. Level of Care Med/Surg Advanced Directives Existing Advance Directive: No Existing Living Will: No Existing Power of Supervisor Speech: No Resuscitation Status FULL RESUSCITATION VTE Prophylaxis VTE Risk Assessment Done? Y/N: Yes Risk Level: Moderate Given or contraindicated: SCD's Social Service Consult None Apply
[2017-07-02] MEDS: PANCREAZE (LIPASE 10,500U) CAP PO SCH ×3 (06:23→16:26)
[2017-07-02] MEDS: LEVOTHYROXINE 125 MCG TAB PO SCH (06:23)
[2017-07-02] MEDS: PANTOprazole SOD 40 MG TAB PO SCH (07:59)
[2017-07-02] MEDS: LORATADINE 10 MG TAB PO SCH (07:59)
[2017-07-02] MEDS: BuPROPion XL 300 MG TABCR PO SCH (07:59)
[2017-07-02] MEDS: CARVEDILOL 6.25 MG TAB PO SCH ×2 (08:00→21:08)
[2017-07-02] MEDS: DOCUSATE SODIUM 100 MG CAP PO SCH ×2 (08:00→21:08)
[2017-07-02 09:37] LABS: BASO % 0.1 %; BASO ABS # 0.01 K/uL (0-0.2); EOS % 1.1 %; EOS ABS # 0.13 K/uL (0-0.5); HEMATOCRIT 37.5 % (37-47); HEMOGLOBIN 12.3 g/dL (12.0-16.0); IG# 0.03 K/uL (0.00-0.02); LYMPH % 9.6 %; LYMPH ABS # 1.12 K/uL (1.2-3.4); MEAN CELL VOLUME 89.1 fL (80-100); MEAN CORPUSCULAR HEMOGLOBIN 29.2 pg (25-34); MEAN CORPUSCULAR HGB CONC 32.8 g/dl (32-36); MEAN PLATELET VOLUME 9.6 fL (7.4-10.4); MONO % 5.9 %; MONO ABS # 0.69 K/uL (0.11-0.59); PLATELET COUNT 194 K/uL (130-400); RED CELL DISTRIBUTION WIDTH CV 13.8 % (11.5-14.5); RED CELL DISTRIBUTION WIDTH SD 44.9 fL (36.4-46.3); WHITE BLOOD COUNT 11.68 K/uL (4.8-10.8)
[2017-07-02 10:15] LABS: ALBUMIN 3.1 gm/dl (3.4-5.0); CALCIUM 7.8 mg/dl (8.5-10.1); CREATININE 0.84 mg/dl (0.60-1.20); TOTAL PROTEIN 7.2 gm/dl (6.4-8.2)
[2017-07-02] MEDS: LACTATED RINGER'S 1000ML 1,000 ML IV SCH ×3 (10:28→23:54)
--- NOTE | 2017-07-02 10:32 | NUR ---
A: Pt is doing well at this time, Morelia Shaw PA-C. here from [facility] and ordered change to IVF's from NS with 20mEq KCL at 40 ml/hr to LR at 150 ml/hr at present. Pt diet changed back to clear liquids and no c/o nausea or emesis noted. Pt I/O maintained. Oob and up to bathroom with staff supervision gait slow and steady. Pt sipping on donovan alberto and water and has been medicated with IV Toradol 30mg for pain management of pancreatitis and p.o. Ativan for anxiety. Continue to monitor pt, call lr at direct reach, hourly rounding maintained.
[2017-07-02 10:59] LABS: POTASSIUM 3.7 mmol/L (3.5-5.1)
--- NOTE | 2017-07-02 11:01 | Gastrointestinal Consultation ---
Gastrointestinal Consultation Date of Consultation: Jul 02, 2017 Attending Physician: Jemma Lowe Consulting Physician: Ganesh Okeefe Reason for Consultation: Pancreatitis History of Present Illness Patient is a 62 year old female w PMHx of cardiomegaly, HTN, dyslipidemia, constipation, Vit D deficiency, depression, hypothyroidism, GERD who presented to ED w c/o abd pain. Pain is sharp stabbing, radiating from mid epigastric to bilateral upper quadrants to back. She has associated nausea but no vomiting. Denies any bowel habit changes, fever, chills. Denies any sick contact, questionable food intake, travels recently. Upon evaluation, VS stable, labs showed leukocytosis w WBC 14K, H/H stable, UA ok, CMP unremarkable, normal LFTs but Lipase 4000s. CT abd/pelvis showed fat stranding on pancreas head area consistent w pancreatitis. She had similar pancreatitis episode about 1 yr ago. Is s/p cholecystectomy. Had EGD/EUS 08/[address] Beckman after her pancreatitis episode last June and study was grossly unremarkable except echogenous pancreas, non specific gastritis, no mention of divisum, cysts etc. She denies ETOH, tobacco uses, no new meds within last 1-3 months. She follows [facility], had been started on Pancrease in outpt setting. Past Medical/Surgical History Medical Problems: (1) Pancreatitis Status: Acute (2) Pancreatitis Status: Acute Past Medical History: See above. Past Surgical History: Cholecystectomy Thyroidectomy Family History Cancer Diabetes mellitus Heart disease Hypertension Social History Smoking Status: Former Smoker Alcohol Use: none Drug Use: none Marital Status: Housing Status: lives with family Occupation Status: employed Allergies Coded Allergies: No Known Allergies (Unverified , NONE, 06/10/16) Current Medications Home Meds and Scripts Medications Dose Route/Sig Max Daily Dose Days Date Category Dose Instructions Claritin (Loratadine) 10 Mg Tab 10 Mg PO DAILY 07/01/17 Reported Docusate Sodium 100 Mg Cap 100 Mg PO BID 07/01/17 Reported Ativan (Lorazepam) 1 Mg Tab 1 Mg PO TID PRN 07/01/17 Reported Keppra (Levetiracetam) 500 Mg Tab 500 Mg PO BID 07/01/17 Reported Prilosec (Omeprazole) 40 Mg Cap 40 Mg PO DAILY 07/01/17 Reported Prozac (Fluoxetine HCl) 40 Mg Cap 80 Mg PO HS 06/10/16 Reported Drisdol (Ergocalciferol) 50,000 Unit Cap 50,000 Inter.unit PO WK 06/03/15 Reported TAKE THIS MEDICATION EVERY SATURDAY Wellbutrin-Xl (Bupropion HCl) 300 Mg Tabcr 300 Mg PO DAILY 06/03/15 Reported Synthroid (Levothyroxine Sodium) 125 Mcg Tab 125 Mcg PO DAILY 06/03/15 Reported Lipitor (Atorvastatin) 20 Mg Tab 20 Mg PO DAILY 06/03/15 Reported Coreg (Carvedilol) 6.25 Mg Tab 6.25 Mg PO BID 06/03/15 Reported Review of Systems Constitutional: No fever, No chills Respiratory: No cough, No shortness of breath Cardiac: No chest pain Abdomen: + pain, + nausea, No vomiting, No GI bleeding Physical Exam Date Time Temp Pulse Resp B/P (MAP) Pulse Ox O2 Delivery O2 Flow Rate FiO2 07/02/17 08:00 94 Room Air 07/02/17 07:14 36.5 82 16 154/86 (108) 94 Room Air 07/02/17 01:30 36.7 73 16 134/83 92 Room Air 07/02/17 00:46 79 16 154/90 93 Room Air 07/01/17 23:22 78 16 162/94 96 Room Air 07/01/17 22:08 93 Room Air 07/01/17 21:21 36.7 88 18 163/99 97 Room Air General Appearance: WD/WN, no apparent distress, + obese Eyes: normal inspection, PERRL, EOMI Neck: supple, no JVD, trachea midline Respiratory/Chest: normal breath sounds, no respiratory distress, no accessory muscle use Cardiovascular: regular rate, rhythm, no gallop, no murmur Abdomen: soft, + tenderness (epigastric area ) Extremities: normal inspection, no pedal edema, no calf tenderness Neurologic/Psych: alert, normal mood/affect, oriented x 3 Skin: normal color, no jaundice, no rash Laboratory Results Last 24 Hours Test 07/01/17 21:50 07/01/17 21:54 07/02/17 09:25 07/02/17 10:24 White Blood Count 14.47 K/uL 11.68 K/uL Red Blood Count 4.82 M/uL 4.21 M/uL Hemoglobin 14.2 g/dL 12.3 g/dL Hematocrit 42.7 % 37.5 % Mean Corpuscular Volume 88.6 fL 89.1 fL Mean Corpuscular Hemoglobin 29.5 pg 29.2 pg Mean Corpuscular Hemoglobin Concent 33.3 g/dl 32.8 g/dl Platelet Count 265 K/uL 194 K/uL Mean Platelet Volume 10.1 fL 9.6 fL Neutrophils (%) (Auto) 78.4 % 83.0 % Lymphocytes (%) (Auto) 13.8 % 9.6 % Monocytes (%) (Auto) 6.4 % 5.9 % Eosinophils (%) (Auto) 1.0 % 1.1 % Basophils (%) (Auto) 0.2 % 0.1 % Neutrophils # (Auto) 11.35 K/uL 9.70 K/uL Lymphocytes # (Auto) 1.99 K/uL 1.12 K/uL Monocytes # (Auto) 0.92 K/uL 0.69 K/uL Eosinophils # (Auto) 0.15 K/uL 0.13 K/uL Basophils # (Auto) 0.03 K/uL 0.01 K/uL RDW Standard Deviation 44.0 fL 44.9 fL RDW Coefficient of Variation 13.5 % 13.8 % Immature Granulocyte % (Auto) 0.2 % 0.3 % Immature Granulocyte # (Auto) 0.03 K/uL 0.03 K/uL Urine Color YELLOW Urine Appearance CLOUDY Urine pH 5.0 Urine Specific [place] 1.032 Urine Protein NEG Urine Glucose (UA) NEG Urine Ketones TRACE Urine Occult Blood 1+ Urine Nitrite NEG Urine Bilirubin NEG Urine Urobilinogen NEG Urine Leukocyte Esterase NEG Urine WBC (Auto) 1-5 /hpf Urine RBC (Auto) 0-4 /hpf Urine Hyaline Casts (Auto) 5-10 /lpf Urine Epithelial Cells (Auto) >30 /lpf Urine Bacteria (Auto) NEG Urine Yeast (Auto) PRESENT Sodium Level 136 mmol/L 132 mmol/L Potassium Level 3.7 mmol/L mmol/L Chloride Level 99 mmol/L 102 mmol/L Carbon Dioxide Level 30 mmol/L 27 mmol/L Anion Gap 7.0 mmol/L 3.0 mmol/L Blood Urea Nitrogen 27 mg/dl 22 mg/dl Creatinine 1.08 mg/dl 0.84 mg/dl Est Creatinine Clear Calc Drug Dose 70.7 ml/min 91.3 ml/min Estimated GFR () 64.6 87.6 Estimated GFR (Non- 55.8 75.5 BUN/Creatinine Ratio 25.2 26.6 Random Glucose 110 mg/dl 110 mg/dl Calcium Level 8.8 mg/dl 7.8 mg/dl Total Bilirubin 0.3 mg/dl 0.5 mg/dl Direct Bilirubin < 0.1 mg/dl mg/dl Aspartate Amino Transf (AST/SGOT) 19 U/L U/L Alanine Aminotransferase (ALT/SGPT) 22 U/L 22 U/L Alkaline Phosphatase 85 U/L 70 U/L Bedside Troponin I < 0.030 ng/ml Troponin I < 0.015 ng/ml Total Protein 8.7 gm/dl 7.2 gm/dl Albumin 3.9 gm/dl 3.1 gm/dl Lipase 4734 U/L 2229 U/L Bedside Lactic Acid Venous 0.78 mmol/L Magnesium Level mg/dl Impression Patient is a 62 year old female admitted with pancreatitis. Had similar episode last year. Is s/p cholecystectomy, no ETOH, tobacco abuses, new meds. She had EGD/EUS eval 08/2016 w/o obvious findings for etiology of her pancreatitis but imaging suggestive of chronic pancreatitis. She follows with [facility]. Plan - LR @ 150ml/hr - NPO except sips and chips. - Pancrease per outpt dosing - Symptomatic management w analgesic and antiemetics prn. Try to limit narcotics to minimize risk for ileus development which can occur in pancreatitis as well. ATTESTATION: I have performed a history and physical examination of this patient and reviewed the electronic record. Specifically, on physical examination there is moderate epigastric tenderness without rebound. I have discussed the case with SERA Soto. The above note reflects my findings, conclusions, and recommendations. Ganesh Okeefe MD
[2017-07-02] MEDS ORDERED: HYDROmorphone INJ 0.5 MG/0.5 ML SYR ONE (11:21)
--- NOTE | 2017-07-02 11:23 | NUR ---
A: Pt medicated with 1 time dose of IV Dilaudid 0.5mg for pain in abdomen radiating to flank and lower back areas. Pt ivf's of LR started at 150 ml/hr per Dr. Okeefe/Morelia Shaw PA-C. Pt resting much better now she stated and is finally sleeping upon reassessment. I/O maintained. Continue to monitor pt closely, pt made NPO except for ice chips and sips with meds. Call lr at direct reach, hourly rounding maintained. Bed alarm on.
[2017-07-02] MEDS ORDERED: HYDROmorphone INJ 0.5 MG/0.5 ML SYR IV ONE (11:25)
[2017-07-02] MEDS ORDERED: NURSING VERBAL MED ORDER ONE (11:30)
[2017-07-02] MEDS: HYDROmorphone INJ 0.5 MG/0.5 ML SYR IV PRN ×4 (17:25→23:53)
--- NOTE | 2017-07-02 17:32 | Hospitalist Progress Note ---
Hospitalist Progress Note Date of Service Jul 02, 2017. Subjective Pt evaluation today including: conversation w/ patient Having severe pain, 06/16 right now despite receiving toradol and tramadol. Pain in epigastric region and radiates to the back. Denies CP or SOB. Is tearful relaying that her just about 3 months ago. She is receiving counseling once weekly, as well as support from the Hospice agency and her hindu All Other Systems: Reviewed and Negative Objective Vital Signs Date Time Temp Pulse Resp B/P (MAP) Pulse Ox O2 Delivery O2 Flow Rate FiO2 07/02/17 15:04 36.5 76 16 154/85 (108) 93 Room Air 07/02/17 11:23 36.6 76 16 120/76 (91) 93 Room Air 07/02/17 08:00 94 Room Air 07/02/17 07:14 36.5 82 16 154/86 (108) 94 Room Air 07/02/17 01:30 36.7 73 16 134/83 92 Room Air 07/02/17 00:46 79 16 154/90 93 Room Air 07/01/17 23:22 78 16 162/94 96 Room Air 07/01/17 22:08 93 Room Air 07/01/17 21:21 36.7 88 18 163/99 97 Room Air Physical Exam General Appearance: WD/WN, + mild distress, + obese Eyes: normal inspection, sclerae normal ENT: hearing grossly normal Neck: trachea midline Respiratory/Chest: lungs clear, normal breath sounds, no respiratory distress, no accessory muscle use Cardiovascular: regular rate, rhythm, no edema, no gallop, no murmur Abdomen: soft, no organomegaly, no pulsatile mass, + abnormal bowel sounds ( hypoactive), + tenderness (in epigastric region without guarding or rebound) Extremities: non-tender, normal inspection, no pedal edema, no calf tenderness Neurologic/Psychiatric: alert, oriented x 3, + pertinent finding (tearful at times talking about recently ) Skin: normal color, warm/dry, no rash Laboratory Results Last 24 Hours Test 07/01/17 21:50 07/01/17 21:54 07/02/17 09:25 07/02/17 10:24 White Blood Count 14.47 K/uL 11.68 K/uL Red Blood Count 4.82 M/uL 4.21 M/uL Hemoglobin 14.2 g/dL 12.3 g/dL Hematocrit 42.7 % 37.5 % Mean Corpuscular Volume 88.6 fL 89.1 fL Mean Corpuscular Hemoglobin 29.5 pg 29.2 pg Mean Corpuscular Hemoglobin Concent 33.3 g/dl 32.8 g/dl Platelet Count 265 K/uL 194 K/uL Mean Platelet Volume 10.1 fL 9.6 fL Neutrophils (%) (Auto) 78.4 % 83.0 % Lymphocytes (%) (Auto) 13.8 % 9.6 % Monocytes (%) (Auto) 6.4 % 5.9 % Eosinophils (%) (Auto) 1.0 % 1.1 % Basophils (%) (Auto) 0.2 % 0.1 % Neutrophils # (Auto) 11.35 K/uL 9.70 K/uL Lymphocytes # (Auto) 1.99 K/uL 1.12 K/uL Monocytes # (Auto) 0.92 K/uL 0.69 K/uL Eosinophils # (Auto) 0.15 K/uL 0.13 K/uL Basophils # (Auto) 0.03 K/uL 0.01 K/uL RDW Standard Deviation 44.0 fL 44.9 fL RDW Coefficient of Variation 13.5 % 13.8 % Immature Granulocyte % (Auto) 0.2 % 0.3 % Immature Granulocyte # (Auto) 0.03 K/uL 0.03 K/uL Urine Color YELLOW Urine Appearance CLOUDY Urine pH 5.0 Urine Specific [place] 1.032 Urine Protein NEG Urine Glucose (UA) NEG Urine Ketones TRACE Urine Occult Blood 1+ Urine Nitrite NEG Urine Bilirubin NEG Urine Urobilinogen NEG Urine Leukocyte Esterase NEG Urine WBC (Auto) 1-5 /hpf Urine RBC (Auto) 0-4 /hpf Urine Hyaline Casts (Auto) 5-10 /lpf Urine Epithelial Cells (Auto) >30 /lpf Urine Bacteria (Auto) NEG Urine Yeast (Auto) PRESENT Sodium Level 136 mmol/L 132 mmol/L Potassium Level 3.7 mmol/L mmol/L 3.7 mmol/L Chloride Level 99 mmol/L 102 mmol/L Carbon Dioxide Level 30 mmol/L 27 mmol/L Anion Gap 7.0 mmol/L 3.0 mmol/L Blood Urea Nitrogen 27 mg/dl 22 mg/dl Creatinine 1.08 mg/dl 0.84 mg/dl Est Creatinine Clear Calc Drug Dose 70.7 ml/min 91.3 ml/min Estimated GFR () 64.6 87.6 Estimated GFR (Non- 55.8 75.5 BUN/Creatinine Ratio 25.2 26.6 Random Glucose 110 mg/dl 110 mg/dl Calcium Level 8.8 mg/dl 7.8 mg/dl Total Bilirubin 0.3 mg/dl 0.5 mg/dl Direct Bilirubin < 0.1 mg/dl mg/dl 0.1 mg/dl Aspartate Amino Transf (AST/SGOT) 19 U/L U/L 17 U/L Alanine Aminotransferase (ALT/SGPT) 22 U/L 22 U/L Alkaline Phosphatase 85 U/L 70 U/L Bedside Troponin I < 0.030 ng/ml Troponin I < 0.015 ng/ml Total Protein 8.7 gm/dl 7.2 gm/dl Albumin 3.9 gm/dl 3.1 gm/dl Lipase 4734 U/L 2229 U/L Bedside Lactic Acid Venous 0.78 mmol/L Magnesium Level mg/dl 2.1 mg/dl Assessment and Plan This pt is a 62 yo female with a h/o pancreatitis, seizure disorder, obesity, chronic LBP, HTN, HL, anxiety/depression, hypothyroidism, and GERD, who presents with worsening epigastric pain, found to have acute pancreatitis. Her labs showed leukocytosis w WBC 14K, H/H stable, UA ok, CMP unremarkable, normal LFTs but Lipase 4000s. CT abd/pelvis showed fat stranding on pancreas head area consistent w pancreatitis. She had similar pancreatitis episode about 1 yr ago. Is s/p cholecystectomy. Had EGD/EUS 08/[address] Beckman after her pancreatitis episode last June and study was grossly unremarkable except echogenous pancreas, non specific gastritis, no mention of divisum, cysts etc. She denies ETOH, tobacco uses, no new meds within last 1-3 months. She follows [facility], had been started on Pancrease in outpt setting. Acute recurrent pancreatitis, with h/o colostomy for diverticulitis and reversal -->still with severe pain today although WBCs and lipase both trending downward. -continue pain control-toradol, tramadol, and add IV dilaudid as she continues with severe pain -keep NPO except sips and chips and adv as tolerated -continue LR for IVFs -antiemetics prn -continue Panrease enzymes when eating Chronic LBP s/p fusion-stable -continue gabapentin, lidocaine patch Hypertension--stable -continue carvedilol 6.25 mg by mouth twice a day. Anxiety/depression- with normal grief period due to recent of her - continue Wellbutrin XL 300 mg by mouth daily, fluoxetine 80 mg by mouth daily, and lorazepam -has routine outpt counseling, no evidence of SI here currently Seizure disorder--stable, no seizures since Fall 2015 -continue Keppra 500 mg by mouth twice a day -f/u with Neuro as outpt Hypercholesterolemia-- stable --atorvastatin on hold while with acute pancreatitis Hypothyroidism--last TSH 6.62 in 02/2017 -continue Levothyroxine sodium 125 g by mouth daily -check TSH in 2-3 weeks as outpt GERD--continue pantoprazole 40 mg by mouth daily DVT Proph-SCDs, Lovenox PPI Dispo- to home when stable FULL CODE
[2017-07-02 18:17] LABS: PTT PATIENT 27.7 SECONDS (21.0-31.0)
[2017-07-02] MEDS: ENOXAPARIN 40 MG/0.4 ML SYR SQ SCH (21:00)
[2017-07-02] MEDS: FLUOXETINE HCL 20 MG CAP PO SCH (21:08)
--- NOTE | 2017-07-02 21:56 | NUR ---
A: Pt arrived in 423 from 2N, alert and orientedx4, c/o abdominal pain and nausea, pain meds given, with LR ongoing at L FA, on NPO except sip, ice chips and meds, Lungs are clear and diminished at RA, with occasional non productive cough, Hypo active BS, tender and non distended abdomen,VSS, needs attended, independent in the room, call lr within reach. Will continue monitoring.
[2017-07-02] MEDS ORDERED: ONDANSETRON 4 MG TAB PO STA (22:48)
--- NOTE | 2017-07-03 01:36 | NUR ---
ID note: A/Ox4. Pain controlled with medication. OOB independently. Pt is NPO except sips and chips. Discharge plans uncertain at this time.
[2017-07-03] MEDS: HYDROmorphone INJ 0.5 MG/0.5 ML SYR IV PRN ×4 (01:56→12:39)
[2017-07-03] MEDS: KETOROLAC TROMETHAMINE 30 MG/ML VIAL IV PRN ×3 (03:03→17:15)
[2017-07-03] MEDS: LACTATED RINGER'S 1000ML 1,000 ML IV SCH ×3 (06:12→20:49)
[2017-07-03] MEDS: LEVOTHYROXINE 125 MCG TAB PO SCH (06:13)
[2017-07-03] MEDS: PANCREAZE (LIPASE 10,500U) CAP PO SCH ×2 (06:13→12:37)
[2017-07-03] MEDS: TRAMADOL HCL 50 MG TAB PO PRN ×3 (06:34→20:49)
[2017-07-03 07:05] LABS: BASO % 0.1 %; BASO ABS # 0.02 K/uL (0-0.2); EOS % 0.9 %; EOS ABS # 0.15 K/uL (0-0.5); HEMATOCRIT 37.7 % (37-47); HEMOGLOBIN 12.2 g/dL (12.0-16.0); IG# 0.05 K/uL (0.00-0.02); LYMPH % 7.3 %; LYMPH ABS # 1.18 K/uL (1.2-3.4); MEAN CELL VOLUME 88.7 fL (80-100); MEAN CORPUSCULAR HEMOGLOBIN 28.7 pg (25-34); MEAN CORPUSCULAR HGB CONC 32.4 g/dl (32-36); MEAN PLATELET VOLUME 9.6 fL (7.4-10.4); MONO % 7.9 %; MONO ABS # 1.27 K/uL (0.11-0.59); NEUT % 83.5 %; PLATELET COUNT 191 K/uL (130-400); RED CELL DISTRIBUTION WIDTH CV 13.3 % (11.5-14.5); RED CELL DISTRIBUTION WIDTH SD 43.5 fL (36.4-46.3); WHITE BLOOD COUNT 16.07 K/uL (4.8-10.8)
[2017-07-03 07:35] VITALS: BP 130/80; PULSE 84; TEMP 36.6; O2SAT 95
[2017-07-03] MEDS: DOCUSATE SODIUM 100 MG CAP PO SCH ×2 (07:37→20:50)
[2017-07-03] MEDS: PANTOprazole SOD 40 MG TAB PO SCH (07:37)
[2017-07-03] MEDS: CARVEDILOL 6.25 MG TAB PO SCH ×2 (07:37→20:50)
[2017-07-03] MEDS: LEVETIRACETAM 500 MG TAB PO SCH ×2 (07:37→20:51)
[2017-07-03] MEDS: LORATADINE 10 MG TAB PO SCH (07:37)
[2017-07-03] MEDS: BuPROPion XL 300 MG TABCR PO SCH (07:37)
[2017-07-03 07:46] LABS: ALBUMIN 2.9 gm/dl (3.4-5.0); CREATININE 0.8 mg/dl (0.60-1.20); POTASSIUM 3.9 mmol/L (3.5-5.1); TOTAL PROTEIN 7.1 gm/dl (6.4-8.2)
--- NOTE | 2017-07-03 11:10 | Gastroenterology Progress Note ---
Progress Note Date of Service: Jul 03, 2017 Subjective Pt evaluation today including: conversation w/ patient, physical exam, chart review, lab review, review of inpatient medication list Pt laying in bed, awake. She reports "pain is unbearable" but then said it's better and in fact on abd palpation she wasn't grimacing/wincing like she did yesterday. Wants to try liquid foods. Lipase is decreasing. WBC up to 16K Review of Systems Constitutional: No fever, No chills Respiratory: No cough, No shortness of breath Cardiac: No chest pain Abdomen: + pain (better), No nausea, No vomiting Medications Current Inpatient Medications Medications (Trade) Dose Ordered Sig/Asiya Route Start Time Stop Time Status Last Admin Dose Admin Ioversol (Optiray 320) 100 ml UD PRN IV 07/01/17 21:45 07/05/17 21:44 Acetaminophen (Tylenol Tab) 650 mg Q4H PRN PO 07/02/17 00:45 08/01/17 00:44 Bupropion HCl (Wellbutrin-Xl Tab) 300 mg DAILY PO 07/02/17 09:00 08/01/17 08:59 07/03/17 07:37 300 MG Carvedilol (Coreg Tab) 6.25 mg BID PO 07/02/17 09:00 08/01/17 08:59 07/03/17 07:37 6.25 MG Docusate Sodium (coLACE CAP) 100 mg BID PO 07/02/17 09:00 08/01/17 08:59 07/03/17 07:37 100 MG Fluoxetine HCl (Prozac Cap) 80 mg HS PO 07/02/17 21:00 08/01/17 20:59 07/02/17 21:08 80 MG Levetiracetam (Keppra Tab) 500 mg BID PO 07/02/17 09:00 08/01/17 08:59 07/03/17 07:37 500 MG Levothyroxine Sodium (Synthroid Tab) 125 mcg DAILYBB PO 07/02/17 06:30 08/01/17 06:29 07/03/17 06:13 125 MCG Loratadine (Claritin Tab) 10 mg DAILY PO 07/02/17 09:00 08/01/17 08:59 07/03/17 07:37 10 MG Lorazepam (Ativan Tab) 1 mg TID PRN PO 07/02/17 00:45 08/01/17 00:44 07/02/17 21:47 1 MG Pantoprazole Sodium (Protonix Tab) 40 mg QAM PO 07/02/17 09:00 08/01/17 08:59 07/03/17 07:37 40 MG Amylase/Lipase/ Protease (Pancreaze (Lipase 10,500U) Cap) 2 cap AC PO 07/02/17 06:30 08/01/17 07:59 07/03/17 06:13 2 CAP Tramadol HCl (Ultram Tab) 50 mg Q4H PRN PO 07/02/17 00:45 08/01/17 00:44 07/03/17 06:34 50 MG Ketorolac Tromethamine (Toradol Inj) 30 mg Q6H PRN IV 07/02/17 00:45 07/07/17 00:44 07/03/17 09:50 30 MG Lactated Ringer's 1,000 ml @ 150 mls/hr Q6H40M IV 07/02/17 10:15 08/01/17 10:14 07/03/17 06:12 150 MLS/HR Hydromorphone HCl (Dilaudid Inj) 0.5 mg Q2H PRN IV 07/02/17 17:15 07/16/17 17:14 07/03/17 07:36 0.5 MG Enoxaparin Sodium (Lovenox Inj) 40 mg HS SQ 07/02/17 21:00 08/01/17 20:59 Objective Vital Signs Date Time Temp Pulse Resp B/P (MAP) Pulse Ox O2 Delivery O2 Flow Rate FiO2 07/03/17 07:35 36.6 84 18 130/80 (97) 95 07/02/17 23:58 Room Air 07/02/17 22:58 37.1 90 18 140/79 (99) 93 Room Air 07/02/17 22:48 88 130/81 (97) 91 Room Air 07/02/17 19:46 36.8 84 18 169/99 (122) 96 Room Air 07/02/17 16:00 Room Air 07/02/17 15:04 36.5 76 16 154/85 (108) 93 Room Air 07/02/17 11:23 36.6 76 16 120/76 (91) 93 Room Air Physical Exam General Appearance: WD/WN, no apparent distress, + obese Eyes: normal inspection, PERRL, EOMI Neck: supple, no JVD, trachea midline Respiratory/Chest: normal breath sounds, no respiratory distress, no accessory muscle use Cardiovascular: regular rate, rhythm, no gallop, no murmur Abdomen: non tender, soft, + abnormal bowel sounds (hypoactive) Extremities: normal inspection, no pedal edema, no calf tenderness, pelvis stable Neurologic/Psych: alert, normal mood/affect, oriented x 3 Skin: normal color, no jaundice, no rash Laboratory Results Last 24 Hours Test 07/02/17 17:51 07/03/17 06:48 Prothrombin Time 10.7 SECONDS Prothromb Time International Ratio 1.0 Activated Partial Thromboplast Time 27.7 SECONDS Partial Thromboplastin Ratio 1.1 White Blood Count 16.07 K/uL Red Blood Count 4.25 M/uL Hemoglobin 12.2 g/dL Hematocrit 37.7 % Mean Corpuscular Volume 88.7 fL Mean Corpuscular Hemoglobin 28.7 pg Mean Corpuscular Hemoglobin Concent 32.4 g/dl Platelet Count 191 K/uL Mean Platelet Volume 9.6 fL Neutrophils (%) (Auto) 83.5 % Lymphocytes (%) (Auto) 7.3 % Monocytes (%) (Auto) 7.9 % Eosinophils (%) (Auto) 0.9 % Basophils (%) (Auto) 0.1 % Neutrophils # (Auto) 13.40 K/uL Lymphocytes # (Auto) 1.18 K/uL Monocytes # (Auto) 1.27 K/uL Eosinophils # (Auto) 0.15 K/uL Basophils # (Auto) 0.02 K/uL RDW Standard Deviation 43.5 fL RDW Coefficient of Variation 13.3 % Immature Granulocyte % (Auto) 0.3 % Immature Granulocyte # (Auto) 0.05 K/uL Sodium Level 134 mmol/L Potassium Level 3.9 mmol/L Chloride Level 98 mmol/L Carbon Dioxide Level 33 mmol/L Anion Gap 3.0 mmol/L Blood Urea Nitrogen 13 mg/dl Creatinine 0.80 mg/dl Est Creatinine Clear Calc Drug Dose 95.9 ml/min Estimated GFR () 92.9 Estimated GFR (Non- 80.1 BUN/Creatinine Ratio 16.2 Random Glucose 98 mg/dl Calcium Level 8.0 mg/dl Magnesium Level 1.9 mg/dl Total Bilirubin 0.5 mg/dl Direct Bilirubin 0.2 mg/dl Aspartate Amino Transf (AST/SGOT) 25 U/L Alanine Aminotransferase (ALT/SGPT) 25 U/L Alkaline Phosphatase 79 U/L Total Protein 7.1 gm/dl Albumin 2.9 gm/dl Triglycerides Level 47 mg/dl Cholesterol Level 144 mg/dl HDL Cholesterol 65 mg/dl LDL Cholesterol, Calculated 70 mg/dl VLDL Cholesterol, Calculated 9 mg/dl Cholesterol/HDL Ratio 2.2 Amylase Level 119 U/L Lipase 644 U/L Assessment and Plan Patient is a 62 year old female admitted with pancreatitis. Had similar episode last year. Is s/p cholecystectomy, no ETOH, tobacco abuses, new meds. She had EGD/EUS eval 08/2016 w/o obvious findings for etiology of her pancreatitis but imaging suggestive of chronic pancreatitis. She follows with [facility]. Abd pain is improving. Lipase decreasing, though WBC noted up to 16K. Afebrile overnight. Plan - LR @ 150ml/hr - CL diet - Pancrease per outpt dosing - Symptomatic management w analgesic and antiemetics prn. Try to limit narcotics to minimize risk for ileus development which can occur in pancreatitis as well. - Would consider repeating CT abd/pelvis w contrast to r/o pancreatic abscess formation if abd pain worsening given WBC increased. ATTESTATION: I have performed a history and physical examination of this patient and reviewed the electronic record. Specifically, on physical examination there is no significant abdominal tenderness. I have discussed the case with SERA Soto. The above note reflects my findings, conclusions, and recommendations. Ganesh Okeefe MD
[2017-07-03 15:38] VITALS: BP 133/85; PULSE 95; TEMP 36.6; O2SAT 93
[2017-07-03] MEDS ORDERED: METHOCARBAMOL 750 MG TAB PO ONE (15:45)
[2017-07-03] MEDS ORDERED: OPTIRAY 320 IV PRN (15:45)
[2017-07-03] MEDS: HYDROmorphone INJ 1 MG/ML SYR IV PRN ×4 (15:46→23:36)
--- NOTE | 2017-07-03 15:46 | Hospitalist Progress Note ---
Hospitalist Progress Note Date of Service Jul 03, 2017. Subjective Pt evaluation today including: conversation w/ patient Pt tried some clear liquids today and pain is more severe in epigastric region and also with severe pain in her lower back at site of previous lumbar fusion that radiates around to her hips bilat. She had one episode of emesis yesterday. Says she take Robaxin at home for her lower back at times. Toradol and Dilaudid help the pain but don't last long enough. Afebrile but WBC count darryl today, lipase decreasing. Constitutional: No fever Respiratory: No shortness of breath Cardiovascular: No chest pain All Other Systems: Reviewed and Negative Objective Vital Signs Date Time Temp Pulse Resp B/P (MAP) Pulse Ox O2 Delivery O2 Flow Rate FiO2 07/03/17 08:00 Room Air 07/03/17 07:35 36.6 84 18 130/80 (97) 95 07/02/17 23:58 Room Air 07/02/17 22:58 37.1 90 18 140/79 (99) 93 Room Air 07/02/17 22:48 88 130/81 (97) 91 Room Air 07/02/17 19:46 36.8 84 18 169/99 (122) 96 Room Air 07/02/17 16:00 Room Air Physical Exam General Appearance: + mild distress (writhing in pain at times on bed), + obese Eyes: normal inspection, sclerae normal ENT: hearing grossly normal Neck: trachea midline Respiratory/Chest: lungs clear, normal breath sounds, no respiratory distress, no accessory muscle use Cardiovascular: regular rate, rhythm, no edema, no gallop, no murmur Abdomen: soft, + abnormal bowel sounds (hypoactive BS), + pertinent finding (+ TTP in epigastric region without guarding, also some +TTP in periumbilical region, no guarding or rebound) Extremities: normal inspection, no pedal edema, no calf tenderness Neurologic/Psychiatric: alert, oriented x 3, + pertinent finding (tearful) Skin: normal color, warm/dry, no rash Laboratory Results Last 24 Hours Test 07/02/17 17:51 07/03/17 06:48 Prothrombin Time 10.7 SECONDS Prothromb Time International Ratio 1.0 Activated Partial Thromboplast Time 27.7 SECONDS Partial Thromboplastin Ratio 1.1 White Blood Count 16.07 K/uL Red Blood Count 4.25 M/uL Hemoglobin 12.2 g/dL Hematocrit 37.7 % Mean Corpuscular Volume 88.7 fL Mean Corpuscular Hemoglobin 28.7 pg Mean Corpuscular Hemoglobin Concent 32.4 g/dl Platelet Count 191 K/uL Mean Platelet Volume 9.6 fL Neutrophils (%) (Auto) 83.5 % Lymphocytes (%) (Auto) 7.3 % Monocytes (%) (Auto) 7.9 % Eosinophils (%) (Auto) 0.9 % Basophils (%) (Auto) 0.1 % Neutrophils # (Auto) 13.40 K/uL Lymphocytes # (Auto) 1.18 K/uL Monocytes # (Auto) 1.27 K/uL Eosinophils # (Auto) 0.15 K/uL Basophils # (Auto) 0.02 K/uL RDW Standard Deviation 43.5 fL RDW Coefficient of Variation 13.3 % Immature Granulocyte % (Auto) 0.3 % Immature Granulocyte # (Auto) 0.05 K/uL Sodium Level 134 mmol/L Potassium Level 3.9 mmol/L Chloride Level 98 mmol/L Carbon Dioxide Level 33 mmol/L Anion Gap 3.0 mmol/L Blood Urea Nitrogen 13 mg/dl Creatinine 0.80 mg/dl Est Creatinine Clear Calc Drug Dose 95.9 ml/min Estimated GFR () 92.9 Estimated GFR (Non- 80.1 BUN/Creatinine Ratio 16.2 Random Glucose 98 mg/dl Calcium Level 8.0 mg/dl Magnesium Level 1.9 mg/dl Total Bilirubin 0.5 mg/dl Direct Bilirubin 0.2 mg/dl Aspartate Amino Transf (AST/SGOT) 25 U/L Alanine Aminotransferase (ALT/SGPT) 25 U/L Alkaline Phosphatase 79 U/L Total Protein 7.1 gm/dl Albumin 2.9 gm/dl Triglycerides Level 47 mg/dl Cholesterol Level 144 mg/dl HDL Cholesterol 65 mg/dl LDL Cholesterol, Calculated 70 mg/dl VLDL Cholesterol, Calculated 9 mg/dl Cholesterol/HDL Ratio 2.2 Amylase Level 119 U/L Lipase 644 U/L Assessment and Plan This pt is a 62 yo female with a h/o acute pancreatitis, seizure disorder, obesity, chronic LBP, HTN, HL, anxiety/depression, hypothyroidism, and GERD, who presents with worsening epigastric pain, found to have acute pancreatitis. Her labs on admission showed leukocytosis w/ WBC 14K, H/H normal, UA ok, CMP unremarkable, normal LFTs but Lipase 4000s. CT abd/pelvis showed fat stranding on pancreas head area consistent w pancreatitis. She had similar pancreatitis episode about 1 yr ago. Is s/p cholecystectomy. Had EGD/EUS 08/[address] Beckman after her pancreatitis episode last June and study was grossly unremarkable except echogenic pancreas, non specific gastritis, no mention of divisum, cysts etc. She denies ETOH, tobacco uses, no new meds within last 1-3 months. She follows [facility], had been started on Pancrease in outpt setting. Acute recurrent pancreatitis, with h/o colostomy for diverticulitis and reversal -->still with severe pain today and now WBC count rising to 16k. Lipase continues to trend downward to 644. Remains afebrile. -repeat CT pancreas now to assess for abscess an/or necrosis given rising WBC count and worsening pain -Appreciate GI consultation -continue pain control-toradol, tramadol, and increase IV dilaudid to 1mg IV q2h prn as she continues with severe pain -decrease diet back to NPO except sips and chips and adv as tolerated -continue LR for IVFs -antiemetics prn -continue Panrease enzymes when eating-not eating, place on hold Acute on Chronic LBP s/p fusion-worsening today possibly from bed/positioning -correction to previous notes: she is NOT on gabapentin, lidocaine patch -continue same pain meds as for pancreatitis as above -add Robaxin 750mg prn muscle spasm -heating pad Hypertension--stable -continue carvedilol 6.25 mg by mouth twice a day. Anxiety/depression- with normal grief period due to recent of her - continue Wellbutrin XL 300 mg by mouth daily, fluoxetine 80 mg by mouth daily, and lorazepam -has routine outpt counseling, no evidence of SI here currently Seizure disorder--stable, no seizures since Fall 2015 -continue Keppra 500 mg by mouth twice a day -f/u with Neuro as outpt Hypercholesterolemia-- stable --atorvastatin on hold while with acute pancreatitis Hypothyroidism--last TSH 6.62 in 02/2017 -continue Levothyroxine sodium 125 g by mouth daily -check TSH in 2-3 weeks as outpt GERD--continue pantoprazole 40 mg by mouth daily DVT Proph-SCDs, Lovenox PPI Dispo- to home when stable FULL CODE
--- NOTE | 2017-07-03 15:51 | NUR ---
A: Pt on NPO excepts sips, ice chips and meds, transported to CT scan via wc.
[2017-07-03 16:20] VITALS: O2SAT 93
--- NOTE | 2017-07-03 16:37 | DIAGNOSTIC IMAGING REPORT ---
CT OF THE ABDOMEN WITH CONTRAST CLINICAL HISTORY: Worsening acute pancreatic head. Evaluate for necrosis. COMPARISON STUDY: CT of the abdomen and pelvis July 01, 2017. TECHNIQUE: Axial images of the abdomen were obtained following intravenous injection of 93 cc of Optiray 320 IV. FINDINGS: Biliary ductal dilatation is unchanged from earlier studies and likely related to prior cholecystectomy. The liver, spleen, adrenal glands and left kidney are normal. A few hypodense right renal lesions likely reflect cysts. These are unchanged. There is no hydronephrosis. Postoperative findings within the spine are partially imaged. There is no pneumatosis, free air or portal venous gas within the abdomen. There is no pancreatic ductal dilatation. The main, left and right portal veins are patent. The splenic vein is patent. There is a suspected 3 mm left renal calculus. There is no hydronephrosis. Note is made of moderate edema centered on the pancreatic head and uncinate process. The amount of edema is slightly increased since prior exam of June 27, 2017. There is no well-defined peripancreatic fluid collection. Edema is most pronounced within the uncinate process. There is no convincing evidence for pancreatic necrosis. IMPRESSION: 1. Increase in findings consistent with acute pancreatitis since CT of July 01, 2017. Increased hypodensity within the uncinate process and pancreatic head. This likely reflects interstitial edema. Developing pancreatic necrosis is considered less likely but could appear similar. No peripancreatic fluid collections. 2. Mild biliary ductal dilatation which is unchanged since CT of June 10, 2016 and likely related to prior cholecystectomy. Electronically signed by: Randolph Solis M.D. 07/03/2017 4:36 PM Dictated Date/Time: 07/03/2017 4:24 PM
[2017-07-03] MEDS: LORAZEPAM 1 MG TAB PO PRN (20:49)
[2017-07-03] MEDS: SENNA 8.6 MG TAB PO SCH (20:50)
[2017-07-03] MEDS: FLUOXETINE HCL 20 MG CAP PO SCH (20:51)
[2017-07-03] MEDS: ENOXAPARIN 40 MG/0.4 ML SYR SQ SCH (20:52)
--- NOTE | 2017-07-03 22:50 | NUR ---
A: Check VSS, and pt sat at 60% at RA, no c/o sob, applied 3L-NC sat up to 97%.
[2017-07-03 23:11] VITALS: BP 95/66; PULSE 100; TEMP 36.8; O2SAT 97
[2017-07-04] VITALS (8 sets, daily range): BP systolic 78–124; BP diastolic 52–76; PULSE 71–98; TEMP 36.5–37; O2SAT 69–98
[2017-07-04] MEDS: TRAMADOL HCL 50 MG TAB PO PRN ×2 (01:12→17:57)
[2017-07-04] MEDS: KETOROLAC TROMETHAMINE 30 MG/ML VIAL IV PRN ×4 (01:13→20:27)
[2017-07-04] MEDS: LACTATED RINGER'S 1000ML 1,000 ML IV SCH ×4 (03:13→20:24)
[2017-07-04] MEDS: HYDROmorphone INJ 1 MG/ML SYR IV PRN ×2 (03:14→05:45)
--- NOTE | 2017-07-04 03:45 | NUR ---
ID: SLEEPING WAKES EASILY - A/O X 3 - IV INFUSING - 02 3L SATS WNL - LUNGS DIMINISHED - BS + - INDEPENDENT IN ROOM - VIT - REMAINS NPO WITH ICE CHIPS - RATES PAIN 8-10/10 SCALE - MULTI PAIN MEDS ADMINISTERED - PT ASKS AT APPROPRIATE TIMES - MOANS - D/C UNCERTAIN
[2017-07-04] MEDS: LEVOTHYROXINE 125 MCG TAB PO SCH (05:47)
[2017-07-04 07:30] LABS: ALBUMIN 2.7 gm/dl (3.4-5.0); CALCIUM 7.8 mg/dl (8.5-10.1); CREATININE 0.97 mg/dl (0.60-1.20); POTASSIUM 3.2 mmol/L (3.5-5.1)
[2017-07-04 07:35] LABS: PHOSPHORUS 2.8 mg/dl (2.5-4.9)
[2017-07-04] MEDS: LORATADINE 10 MG TAB PO SCH (07:40)
[2017-07-04] MEDS: LEVETIRACETAM 500 MG TAB PO SCH ×2 (07:40→20:23)
[2017-07-04] MEDS: DOCUSATE SODIUM 100 MG CAP PO SCH ×2 (07:40→20:22)
[2017-07-04] MEDS: CARVEDILOL 6.25 MG TAB PO SCH ×2 (07:40→20:23)
[2017-07-04] MEDS: BuPROPion XL 300 MG TABCR PO SCH (07:41)
[2017-07-04] MEDS: PANTOprazole SOD 40 MG TAB PO SCH (07:41)
[2017-07-04] MEDS: SENNA 8.6 MG TAB PO SCH ×2 (07:41→20:23)
[2017-07-04] MEDS ORDERED: NALOXONE HCL 0.4 MG/1 ML VIAL/CARP IV PRN (08:00)
[2017-07-04] MEDS ORDERED: POTASSIUM CHLORIDE 10 MEQ TABCR PO STA (08:46)
[2017-07-04 09:29] LABS: HEMATOCRIT 34.1 % (37-47); HEMOGLOBIN 11.1 g/dL (12.0-16.0); MEAN CELL VOLUME 90.7 fL (80-100); MEAN CORPUSCULAR HEMOGLOBIN 29.5 pg (25-34); MEAN CORPUSCULAR HGB CONC 32.6 g/dl (32-36); MEAN PLATELET VOLUME 10.2 fL (7.4-10.4); PLATELET COUNT 180 K/uL (130-400); RED CELL DISTRIBUTION WIDTH CV 13.9 % (11.5-14.5); RED CELL DISTRIBUTION WIDTH SD 45.8 fL (36.4-46.3)
[2017-07-04 09:30] LABS: BASO % 0.1 %; BASO ABS # 0.02 K/uL (0-0.2); EOS % 0.8 %; EOS ABS # 0.14 K/uL (0-0.5); IG# 0.07 K/uL (0.00-0.02); LYMPH % 5.4 %; LYMPH ABS # 0.96 K/uL (1.2-3.4); MONO % 8.9 %; MONO ABS # 1.59 K/uL (0.11-0.59); NEUT % 84.4 %; NEUT ABS # 15.12 K/uL (1.4-6.5)
[2017-07-04] MEDS ORDERED: METHYLNALTREXONE BROMIDE INJ 12 MG/0.6 ML SYR SQ ONE (10:00)
[2017-07-04] MEDS: HYDROmorphone INJ 0.5 MG/0.5 ML SYR IV PRN ×4 (11:16→23:42)
--- NOTE | 2017-07-04 11:48 | Gastroenterology Progress Note ---
Progress Note Date of Service: Jul 04, 2017 Subjective Pt evaluation today including: conversation w/ patient, physical exam, chart review, lab review, review of studies, review of inpatient medication list Pt reports still having abd pain. Though on exam, when deep palpation of abd done she is not grimacing, wincing or c/o pain. RN report O2 sat 69% this AM, suspected opioid induced respiratory depression. O2 per NC 3L, now O2 sat 95%. She is AAO. Repeat CT pancreas showed slightly increased edema on uncinate and head cannot exclude pancreas necrosis but no obvious fluid collection. WBC 16 -> 17 Review of Systems Constitutional: No fever, No chills Respiratory: + see HPI, No cough, No shortness of breath Cardiac: No chest pain Abdomen: + pain, No nausea, No vomiting Medications Current Inpatient Medications Medications (Trade) Dose Ordered Sig/Asiya Route Start Time Stop Time Status Last Admin Dose Admin Ioversol (Optiray 320) 100 ml UD PRN IV 07/01/17 21:45 07/05/17 21:44 Acetaminophen (Tylenol Tab) 650 mg Q4H PRN PO 07/02/17 00:45 08/01/17 00:44 Bupropion HCl (Wellbutrin-Xl Tab) 300 mg DAILY PO 07/02/17 09:00 08/01/17 08:59 07/04/17 07:41 300 MG Carvedilol (Coreg Tab) 6.25 mg BID PO 07/02/17 09:00 08/01/17 08:59 07/04/17 07:40 6.25 MG Docusate Sodium (coLACE CAP) 100 mg BID PO 07/02/17 09:00 08/01/17 08:59 07/04/17 07:40 100 MG Fluoxetine HCl (Prozac Cap) 80 mg HS PO 07/02/17 21:00 08/01/17 20:59 07/03/17 20:51 80 MG Levetiracetam (Keppra Tab) 500 mg BID PO 07/02/17 09:00 08/01/17 08:59 07/04/17 07:40 500 MG Levothyroxine Sodium (Synthroid Tab) 125 mcg DAILYBB PO 07/02/17 06:30 08/01/17 06:29 07/04/17 05:47 125 MCG Loratadine (Claritin Tab) 10 mg DAILY PO 07/02/17 09:00 08/01/17 08:59 07/04/17 07:40 10 MG Lorazepam (Ativan Tab) 1 mg TID PRN PO 07/02/17 00:45 08/01/17 00:44 07/03/17 20:49 1 MG Pantoprazole Sodium (Protonix Tab) 40 mg QAM PO 07/02/17 09:00 08/01/17 08:59 07/04/17 07:41 40 MG Amylase/Lipase/ Protease (Pancreaze (Lipase 10,500U) Cap) 2 cap AC PO 07/02/17 06:30 08/01/17 07:59 Future Hold 07/03/17 12:37 2 CAP Tramadol HCl (Ultram Tab) 50 mg Q4H PRN PO 07/02/17 00:45 08/01/17 00:44 07/04/17 01:12 50 MG Ketorolac Tromethamine (Toradol Inj) 30 mg Q6H PRN IV 07/02/17 00:45 07/07/17 00:44 07/04/17 07:42 30 MG Lactated Ringer's 1,000 ml @ 150 mls/hr Q6H40M IV 07/02/17 10:15 08/01/17 10:14 07/04/17 09:41 150 MLS/HR Enoxaparin Sodium (Lovenox Inj) 40 mg HS SQ 07/02/17 21:00 08/01/17 20:59 07/03/17 20:52 40 MG Methocarbamol (Robaxin Tab) 750 mg TID PRN PO 07/03/17 15:30 08/02/17 15:29 Ioversol (Optiray 320) 100 ml UD PRN IV 07/03/17 15:45 07/07/17 15:44 Senna (Senokot Tab) 8.6 mg BID PO 07/03/17 20:00 08/02/17 19:59 07/04/17 07:41 8.6 MG Hydromorphone HCl (Dilaudid Inj) 0.5 mg Q3H PRN IV 07/04/17 08:00 07/16/17 17:14 07/04/17 11:16 0.5 MG Naloxone HCl (Narcan Inj) 0.4 mg Q1H PRN IV 07/04/17 08:00 08/03/17 07:59 Objective Vital Signs Date Time Temp Pulse Resp B/P (MAP) Pulse Ox O2 Delivery O2 Flow Rate FiO2 07/04/17 08:00 Nasal Cannula 3.0 07/04/17 07:36 95 Nasal Cannula 3.0 07/04/17 07:32 37.0 98 20 108/70 (83) 69 Room Air 07/04/17 00:17 Nasal Cannula 3.0 07/03/17 23:11 36.8 100 19 95/66 (76) 97 Nasal Cannula 3.0 07/03/17 16:20 93 Room Air 07/03/17 15:38 36.6 95 18 133/85 (101) 93 Room Air Physical Exam General Appearance: WD/WN, no apparent distress, + obese Eyes: normal inspection, PERRL, EOMI Neck: supple, no JVD, trachea midline Respiratory/Chest: normal breath sounds, no respiratory distress, no accessory muscle use Cardiovascular: regular rate, rhythm, no gallop, no murmur Abdomen: non tender, soft, + abnormal bowel sounds (hypoactive ) Extremities: normal inspection, no pedal edema, no calf tenderness Neurologic/Psych: alert, normal mood/affect, oriented x 3 Skin: normal color, no jaundice, no rash Laboratory Results Last 24 Hours Test 07/04/17 06:41 07/04/17 06:43 Sodium Level 135 mmol/L Potassium Level 3.2 mmol/L Chloride Level 99 mmol/L Carbon Dioxide Level 33 mmol/L Anion Gap 3.0 mmol/L Blood Urea Nitrogen 15 mg/dl Creatinine 0.97 mg/dl Est Creatinine Clear Calc Drug Dose 79.1 ml/min Estimated GFR () 73.6 Estimated GFR (Non- 63.5 BUN/Creatinine Ratio 15.0 Random Glucose 77 mg/dl Calcium Level 7.8 mg/dl Phosphorus Level 2.8 mg/dl Magnesium Level 1.9 mg/dl Total Bilirubin 0.7 mg/dl Direct Bilirubin 0.4 mg/dl Aspartate Amino Transf (AST/SGOT) 32 U/L Alanine Aminotransferase (ALT/SGPT) 31 U/L Alkaline Phosphatase 107 U/L Total Protein 7.0 gm/dl Albumin 2.7 gm/dl Prealbumin 10.7 mg/dl Amylase Level 62 U/L Lipase 231 U/L White Blood Count 17.90 K/uL Red Blood Count 3.76 M/uL Hemoglobin 11.1 g/dL Hematocrit 34.1 % Mean Corpuscular Volume 90.7 fL Mean Corpuscular Hemoglobin 29.5 pg Mean Corpuscular Hemoglobin Concent 32.6 g/dl Platelet Count 180 K/uL Mean Platelet Volume 10.2 fL Neutrophils (%) (Auto) 84.4 % Lymphocytes (%) (Auto) 5.4 % Monocytes (%) (Auto) 8.9 % Eosinophils (%) (Auto) 0.8 % Basophils (%) (Auto) 0.1 % Neutrophils # (Auto) 15.12 K/uL Lymphocytes # (Auto) 0.96 K/uL Monocytes # (Auto) 1.59 K/uL Eosinophils # (Auto) 0.14 K/uL Basophils # (Auto) 0.02 K/uL RDW Standard Deviation 45.8 fL RDW Coefficient of Variation 13.9 % Immature Granulocyte % (Auto) 0.4 % Immature Granulocyte # (Auto) 0.07 K/uL Platelet Estimate NORMAL Assessment and Plan Patient is a 62 year old female admitted with pancreatitis. Had similar episode last year. Is s/p cholecystectomy, no ETOH, tobacco abuses, new meds. She had EGD/EUS eval 08/2016 w/o obvious findings for etiology of her pancreatitis but imaging suggestive of chronic pancreatitis. She follows with [facility]. No signs of abd pain on exam though pt reports abd pain still the same. Lipase decreasing, though WBC noted up to 17K today. Afebrile overnight. Repeat CT pancreas w slightly increased edema on pancreas uncinate and head but cannot exclude pancreas necrosis or obvious fluid collection. Plan - LR @ 150ml/hr - NPO except sips and chips - Pancrease per outpt dosing - Symptomatic management w analgesic and antiemetics prn. Try to limit narcotics to minimize risk for ileus development which can occur in pancreatitis as well. - Relistor 12mg subq x 1 dose today. ATTESTATION: I have performed a history and physical examination of this patient and reviewed the electronic record. Specifically, on physical examination there is epigastric tenderness. I have discussed the case with SERA Soto. The above note reflects my findings, conclusions, and recommendations. Ganesh Okeefe MD
--- NOTE | 2017-07-04 13:53 | NUR ---
a: patient only voided 100ml this shift. bladder scanned for 0ml. md on unit and to evaluate. call lr in reach.
--- NOTE | 2017-07-04 14:10 | Hospitalist Progress Note ---
Hospitalist Progress Note Date of Service Jul 04, 2017. Subjective Pt evaluation today including: conversation w/ patient Pt had 2 episodes of desaturation last night to the 60s while sleeping.Came up quickly with NC/O2. Pt has been told in the past she probably has YARITZA. Also occurred in relationship to dilaudid administration. Pain currently is an 8/10, somewhat improved. Back pain is better, coming and going. RN also reports decreased UOP overnight and so far today All Other Systems: Reviewed and Negative Objective Vital Signs Date Time Temp Pulse Resp B/P (MAP) Pulse Ox O2 Delivery O2 Flow Rate FiO2 07/04/17 08:00 Nasal Cannula 3.0 07/04/17 07:36 95 Nasal Cannula 3.0 07/04/17 07:32 37.0 98 20 108/70 (83) 69 Room Air 07/04/17 00:17 Nasal Cannula 3.0 07/03/17 23:11 36.8 100 19 95/66 (76) 97 Nasal Cannula 3.0 07/03/17 16:20 93 Room Air 07/03/17 15:38 36.6 95 18 133/85 (101) 93 Room Air Physical Exam General Appearance: no apparent distress, + obese Eyes: normal inspection, sclerae normal ENT: hearing grossly normal Neck: trachea midline Respiratory/Chest: lungs clear, normal breath sounds, no respiratory distress, no accessory muscle use Cardiovascular: regular rate, rhythm, no edema, no gallop, no murmur Abdomen: normal bowel sounds, soft, + tenderness (in epigastric region but not as much as previous, no guarding or rebound) Extremities: non-tender, normal inspection, no pedal edema, no calf tenderness Neurologic/Psychiatric: alert, normal mood/affect, oriented x 3 Skin: normal color, warm/dry, no rash Laboratory Results Last 24 Hours Test 07/04/17 06:41 07/04/17 06:43 Sodium Level 135 mmol/L Potassium Level 3.2 mmol/L Chloride Level 99 mmol/L Carbon Dioxide Level 33 mmol/L Anion Gap 3.0 mmol/L Blood Urea Nitrogen 15 mg/dl Creatinine 0.97 mg/dl Est Creatinine Clear Calc Drug Dose 79.1 ml/min Estimated GFR () 73.6 Estimated GFR (Non- 63.5 BUN/Creatinine Ratio 15.0 Random Glucose 77 mg/dl Calcium Level 7.8 mg/dl Phosphorus Level 2.8 mg/dl Magnesium Level 1.9 mg/dl Total Bilirubin 0.7 mg/dl Direct Bilirubin 0.4 mg/dl Aspartate Amino Transf (AST/SGOT) 32 U/L Alanine Aminotransferase (ALT/SGPT) 31 U/L Alkaline Phosphatase 107 U/L Total Protein 7.0 gm/dl Albumin 2.7 gm/dl Prealbumin 10.7 mg/dl Amylase Level 62 U/L Lipase 231 U/L White Blood Count 17.90 K/uL Red Blood Count 3.76 M/uL Hemoglobin 11.1 g/dL Hematocrit 34.1 % Mean Corpuscular Volume 90.7 fL Mean Corpuscular Hemoglobin 29.5 pg Mean Corpuscular Hemoglobin Concent 32.6 g/dl Platelet Count 180 K/uL Mean Platelet Volume 10.2 fL Neutrophils (%) (Auto) 84.4 % Lymphocytes (%) (Auto) 5.4 % Monocytes (%) (Auto) 8.9 % Eosinophils (%) (Auto) 0.8 % Basophils (%) (Auto) 0.1 % Neutrophils # (Auto) 15.12 K/uL Lymphocytes # (Auto) 0.96 K/uL Monocytes # (Auto) 1.59 K/uL Eosinophils # (Auto) 0.14 K/uL Basophils # (Auto) 0.02 K/uL RDW Standard Deviation 45.8 fL RDW Coefficient of Variation 13.9 % Immature Granulocyte % (Auto) 0.4 % Immature Granulocyte # (Auto) 0.07 K/uL Platelet Estimate NORMAL Assessment and Plan This pt is a 62 yo female with a h/o acute pancreatitis, seizure disorder, obesity, chronic LBP, HTN, HL, anxiety/depression, hypothyroidism, and GERD, who presents with worsening epigastric pain, found to have acute pancreatitis. Her labs on admission showed leukocytosis w/ WBC 14K, H/H normal, UA ok, CMP unremarkable, normal LFTs but Lipase 4000s. CT abd/pelvis showed fat stranding on pancreas head area consistent w pancreatitis. She had similar pancreatitis episode about 1 yr ago. Is s/p cholecystectomy. Had EGD/EUS 08/[address] Beckman after her pancreatitis episode last June and study was grossly unremarkable except echogenic pancreas, non specific gastritis, no mention of divisum, cysts etc. She denies ETOH, tobacco uses, no new meds within last 1-3 months. She follows [facility], had been started on Pancrease in outpt setting. Acute recurrent pancreatitis, with h/o colostomy for diverticulitis and reversal -->pain slightly improved, repeat CT pancreas 07/03 with increased edema of pancreas, no definite necrosis or abscess, but WBC count continues to rise to 17k today. Lipase continues to trend downward to 231 though. Remains afebrile. UOP low today could be from low BP overnight with hypoxia as well as from third spacing from pancreatitis -Appreciate GI consultation -slowly avance diet today to clears -continue pain control-toradol, tramadol, and will decrease IV dilaudid to0.5mg IV q3h prn given hypoxemic failure and desats, oversedation -continue LR for IVFs but increase to 200 mls/hr for low UOP -antiemetics prn -continue Panrease enzymes when eating -Relistor ordered by GI for constipation Acute hypoxemic respiratory failure-related to oversedation with opioids plus likely undiagnosed YARITZA given morbid obesity, thick neck -continue supplemental O2 during day as needed or when napping, and qhs-d/w nursing -will need overnight oximetry prior to discharge and formal sleep study as outpt -decrease dialudid dose and have narcan available Acute on Chronic LBP s/p fusion-possibly from bed/positioning, improved today -continue same pain meds as for pancreatitis as above -continue Robaxin 750mg prn muscle spasm -heating pad Hypertension--stable to low BP -continue carvedilol 6.25 mg by mouth twice a day with hold parameters Anxiety/depression- with normal grief period due to recent of her - continue Wellbutrin XL 300 mg by mouth daily, fluoxetine 80 mg by mouth daily, and lorazepam -has routine outpt counseling, no evidence of SI here currently Seizure disorder--stable, no seizures since Fall 2015 -continue Keppra 500 mg by mouth twice a day -f/u with Neuro as outpt Hypercholesterolemia-- stable --atorvastatin on hold while with acute pancreatitis Hypothyroidism--last TSH 6.62 in 02/2017 -continue Levothyroxine sodium 125 g by mouth daily -check TSH in 2-3 weeks as outpt GERD--continue pantoprazole 40 mg by mouth daily DVT Proph-SCDs, Lovenox PPI Dispo- to home when stable FULL CODE
[2017-07-04] MEDS: PANCREAZE (LIPASE 10,500U) CAP PO SCH (17:55)
[2017-07-04] MEDS: FLUOXETINE HCL 20 MG CAP PO SCH (20:24)
[2017-07-04] MEDS: ENOXAPARIN 40 MG/0.4 ML SYR SQ SCH (20:24)
[2017-07-04] MEDS: LORAZEPAM 1 MG TAB PO PRN (20:27)
[2017-07-05] MEDS: LORAZEPAM 1 MG TAB PO PRN ×2 (00:54→08:54)
[2017-07-05] MEDS: LACTATED RINGER'S 1000ML 1,000 ML IV SCH ×4 (00:55→18:10)
[2017-07-05] MEDS: KETOROLAC TROMETHAMINE 30 MG/ML VIAL IV PRN ×4 (02:47→20:40)
--- NOTE | 2017-07-05 04:29 | NUR ---
ID: Pt A/Ox4. Independent in room. VSS on 2L 02 NC. Denies chest pain, SOB, or N/V at this time. Pt does have abdominal pain. Medicated with PRN pain meds as ordered. IVF infusing without incident. Pt to wear 02 overnight d/t probable diagnosis of YARITZA and desat while sleeping last night. Tolerating clear liquid diet at this time. For full assessment see EMR. Pt from home and will return home at discharge, date uncertain at this time. Q1H rounding maintained and call lr within reach. Will continue to monitor.
[2017-07-05] MEDS: LEVOTHYROXINE 125 MCG TAB PO SCH (05:48)
[2017-07-05] MEDS: HYDROmorphone INJ 0.5 MG/0.5 ML SYR IV PRN ×4 (05:52→22:21)
[2017-07-05] MEDS: PANCREAZE (LIPASE 10,500U) CAP PO SCH ×3 (06:04→17:36)
[2017-07-05 07:15] VITALS: BP 137/78; PULSE 85; TEMP 36.6; O2SAT 92
[2017-07-05 07:43] LABS: HEMATOCRIT 30.4 % (37-47); HEMOGLOBIN 9.7 g/dL (12.0-16.0); MEAN CELL VOLUME 90.5 fL (80-100); MEAN CORPUSCULAR HEMOGLOBIN 28.9 pg (25-34); MEAN CORPUSCULAR HGB CONC 31.9 g/dl (32-36); PLATELET COUNT 150 K/uL (130-400); RED CELL DISTRIBUTION WIDTH CV 13.7 % (11.5-14.5); RED CELL DISTRIBUTION WIDTH SD 45.5 fL (36.4-46.3); WHITE BLOOD COUNT 11.32 K/uL (4.8-10.8)
[2017-07-05 08:00] VITALS: O2SAT 92
--- NOTE | 2017-07-05 08:00 | NUR ---
A: pt alert and oriented . she is independent in room w/ steady gait. room air while awake. respirations even and unlabored. pt does desaturate when sleeping. she is mouth breather and does snore. pt is to have pulse ox study prior to discharge. pt is voiding w/o issue. small BM today. pt has abdominal pain and tenderness in epigastric area. she is being medicated as per SEP. skin intact. fluids infusing as per order w/o impairment or discomfort. no edema. pt refused clear breakfast d/t pain. pt ringing for assist as needed. will continue care.
[2017-07-05 08:11] LABS: CALCIUM 7.6 mg/dl (8.5-10.1); CREATININE 0.73 mg/dl (0.60-1.20); POTASSIUM 3.3 mmol/L (3.5-5.1)
[2017-07-05] MEDS: PANTOprazole SOD 40 MG TAB PO SCH (08:50)
[2017-07-05] MEDS: LORATADINE 10 MG TAB PO SCH (08:50)
[2017-07-05] MEDS: SENNA 8.6 MG TAB PO SCH ×2 (08:50→20:05)
[2017-07-05] MEDS: CARVEDILOL 6.25 MG TAB PO SCH ×2 (08:51→20:04)
[2017-07-05] MEDS: BuPROPion XL 300 MG TABCR PO SCH (08:51)
[2017-07-05] MEDS: LEVETIRACETAM 500 MG TAB PO SCH ×2 (08:51→20:06)
[2017-07-05] MEDS: DOCUSATE SODIUM 100 MG CAP PO SCH ×2 (08:51→20:04)
[2017-07-05] MEDS ORDERED: POTASSIUM CHLORIDE 20 MEQ TABCR PO STA (09:41)
--- NOTE | 2017-07-05 12:08 | Hospitalist Progress Note ---
Hospitalist Progress Note Date of Service Jul 05, 2017. Subjective Pt evaluation today including: conversation w/ patient, conversation w/ mental health consultant (GI) UOP improved, feling better, toradol is helping. She has been OOB and ambulating around room. No CP or SOB. [place] like stomach was burning after eating clears yesterday, has not tried anything today. Had 2 BMs today and feels better in that regard All Other Systems: Reviewed and Negative Objective Vital Signs Date Time Temp Pulse Resp B/P (MAP) Pulse Ox O2 Delivery O2 Flow Rate FiO2 07/05/17 08:00 92 Room Air 07/05/17 07:15 36.6 85 18 137/78 (97) 92 Room Air 07/05/17 00:00 Nasal Cannula 2.0 07/04/17 23:29 36.6 71 18 95/66 (76) 95 Nasal Cannula 2.0 07/04/17 20:21 124/76 (92) 96 Nasal Cannula 2.0 07/04/17 18:14 95 Room Air 07/04/17 16:22 96 Nasal Cannula 2.0 07/04/17 15:05 36.5 82 18 78/52 (61) 96 Nasal Cannula 2.0 93/64 (74) 07/04/17 14:05 36.6 76 16 97/67 (77) 98 Nasal Cannula 2.0 Physical Exam General Appearance: WD/WN, no apparent distress, + obese Eyes: normal inspection, sclerae normal ENT: hearing grossly normal Neck: trachea midline Respiratory/Chest: lungs clear, normal breath sounds, no respiratory distress, no accessory muscle use Cardiovascular: regular rate, rhythm, no edema, no gallop, no murmur Abdomen: non tender, soft, no organomegaly, no pulsatile mass, + abnormal bowel sounds (hypoactive) Extremities: normal range of motion, non-tender, normal inspection, no pedal edema Neurologic/Psychiatric: alert, normal mood/affect, oriented x 3 Skin: normal color, warm/dry, no rash Laboratory Results Last 24 Hours Test 07/05/17 07:32 White Blood Count 11.32 K/uL Red Blood Count 3.36 M/uL Hemoglobin 9.7 g/dL Hematocrit 30.4 % Mean Corpuscular Volume 90.5 fL Mean Corpuscular Hemoglobin 28.9 pg Mean Corpuscular Hemoglobin Concent 31.9 g/dl RDW Standard Deviation 45.5 fL RDW Coefficient of Variation 13.7 % Platelet Count 150 K/uL Mean Platelet Volume 10.0 fL Sodium Level 139 mmol/L Potassium Level 3.3 mmol/L Chloride Level 101 mmol/L Carbon Dioxide Level 31 mmol/L Anion Gap 7.0 mmol/L Blood Urea Nitrogen 13 mg/dl Creatinine 0.73 mg/dl Est Creatinine Clear Calc Drug Dose 105.0 ml/min Estimated GFR () 103.8 Estimated GFR (Non- 89.5 BUN/Creatinine Ratio 17.6 Random Glucose 95 mg/dl Calcium Level 7.6 mg/dl Lipase 157 U/L Assessment and Plan This pt is a 62 yo female with a h/o acute pancreatitis, seizure disorder, obesity, chronic LBP, HTN, HL, anxiety/depression, hypothyroidism, and GERD, who presents with worsening epigastric pain, found to have acute pancreatitis. Her labs on admission showed leukocytosis w/ WBC 14K, H/H normal, UA ok, CMP unremarkable, normal LFTs but Lipase 4000s. CT abd/pelvis showed fat stranding on pancreas head area consistent w pancreatitis. She had similar pancreatitis episode about 1 yr ago. Is s/p cholecystectomy. Had EGD/EUS 08/[address] Beckman after her pancreatitis episode last June and study was grossly unremarkable except echogenic pancreas, non specific gastritis, no mention of divisum, cysts etc. She denies ETOH, tobacco uses, no new meds within last 1-3 months. She follows [facility], had been started on Pancrease in outpt setting. Acute recurrent pancreatitis, with h/o colostomy for diverticulitis and reversal -->pain much improved, repeat CT pancreas 07/03 with increased edema of pancreas , no definite necrosis or abscess, but WBC count was continuing to rise to 17k- now down again to 11. Lipase continues to trend downward to 157 (was 4700 on admission). Remains afebrile. UOP improved, ileus resolved -Appreciate GI consultation -advance diet to full liquids today -add Zantac qhs for possible gastritis -continue pain control-toradol, tramadol, IV dilaudid 0.5mg -continue LR for IVFs but decrease back to 150 mls/hr given UOP has improved -antiemetics prn -continue Panrease enzymes when eating -Relistor given x 1 for constipation and helped -follow CBC, PRP -could possibly dc to home tomorrow -will ened GI outpatient f/u Acute hypoxemic respiratory failure-related to oversedation with opioids plus likely undiagnosed YARITZA given morbid obesity, thick neck--> doing well now on O2 at nighttime -continue supplemental O2 during day as needed or when napping, and qhs -check overnight oximetry tonight -will need formal sleep study as outpt Hypokalemia- replace K+ po Acute on Chronic LBP s/p fusion-possibly from bed/positioning, improved -continue same pain meds as for pancreatitis as above -continue Robaxin 750mg prn muscle spasm -heating pad Hypertension--stable to low BP -continue carvedilol 6.25 mg by mouth twice a day with hold parameters Anxiety/depression- with normal grief period due to recent of her - continue Wellbutrin XL 300 mg by mouth daily, fluoxetine 80 mg by mouth daily, and lorazepam -has routine outpt counseling, no evidence of SI here currently Seizure disorder--stable, no seizures since Fall 2015 -continue Keppra 500 mg by mouth twice a day -f/u with Neuro as outpt Hypercholesterolemia-- stable --atorvastatin on hold while with acute pancreatitis Hypothyroidism--last TSH 6.62 in 02/2017 -continue Levothyroxine sodium 125 g by mouth daily -check TSH in 2-3 weeks as outpt GERD--continue pantoprazole 40 mg by mouth daily, adding Zantac at bedtime DVT Proph-SCDs, Lovenox PPI Dispo- to home in 1-2 days, will need home O2 most likely nocturnally FULL CODE
--- NOTE | 2017-07-05 12:25 | Gastroenterology Progress Note ---
Progress Note Date of Service: Jul 05, 2017 Subjective Pt evaluation today including: conversation w/ patient, physical exam, chart review, lab review, review of inpatient medication list Pt reports still having abd pain, tried liquids w/o much appetite. WBC down to 11K, Lipase normalizing. Review of Systems Constitutional: No fever, No chills Respiratory: No cough, No shortness of breath Cardiac: No chest pain Abdomen: + pain, + nausea, No vomiting Medications Current Inpatient Medications Medications (Trade) Dose Ordered Sig/Asiya Route Start Time Stop Time Status Last Admin Dose Admin Ioversol (Optiray 320) 100 ml UD PRN IV 07/01/17 21:45 07/05/17 21:44 Acetaminophen (Tylenol Tab) 650 mg Q4H PRN PO 07/02/17 00:45 08/01/17 00:44 Bupropion HCl (Wellbutrin-Xl Tab) 300 mg DAILY PO 07/02/17 09:00 08/01/17 08:59 07/05/17 08:51 300 MG Carvedilol (Coreg Tab) 6.25 mg BID PO 07/02/17 09:00 08/01/17 08:59 07/05/17 08:51 6.25 MG Docusate Sodium (coLACE CAP) 100 mg BID PO 07/02/17 09:00 08/01/17 08:59 07/05/17 08:51 100 MG Fluoxetine HCl (Prozac Cap) 80 mg HS PO 07/02/17 21:00 08/01/17 20:59 07/04/17 20:24 80 MG Levetiracetam (Keppra Tab) 500 mg BID PO 07/02/17 09:00 08/01/17 08:59 07/05/17 08:51 500 MG Levothyroxine Sodium (Synthroid Tab) 125 mcg DAILYBB PO 07/02/17 06:30 08/01/17 06:29 07/05/17 05:48 125 MCG Loratadine (Claritin Tab) 10 mg DAILY PO 07/02/17 09:00 08/01/17 08:59 07/05/17 08:50 10 MG Lorazepam (Ativan Tab) 1 mg TID PRN PO 07/02/17 00:45 08/01/17 00:44 07/05/17 08:54 1 MG Pantoprazole Sodium (Protonix Tab) 40 mg QAM PO 07/02/17 09:00 08/01/17 08:59 07/05/17 08:50 40 MG Amylase/Lipase/ Protease (Pancreaze (Lipase 10,500U) Cap) 2 cap AC PO 07/02/17 06:30 08/01/17 07:59 Future hold 07/05/17 12:02 2 CAP Tramadol HCl (Ultram Tab) 50 mg Q4H PRN PO 07/02/17 00:45 08/01/17 00:44 07/04/17 17:57 50 MG Ketorolac Tromethamine (Toradol Inj) 30 mg Q6H PRN IV 07/02/17 00:45 07/07/17 00:44 07/05/17 08:47 30 MG Lactated Ringer's 1,000 ml @ 150 mls/hr Q6H40M IV 07/02/17 10:15 08/01/17 10:14 07/05/17 12:06 150 MLS/HR Enoxaparin Sodium (Lovenox Inj) 40 mg HS SQ 07/02/17 21:00 08/01/17 20:59 07/03/17 20:52 40 MG Methocarbamol (Robaxin Tab) 750 mg TID PRN PO 07/03/17 15:30 08/02/17 15:29 Ioversol (Optiray 320) 100 ml UD PRN IV 07/03/17 15:45 07/07/17 15:44 Senna (Senokot Tab) 8.6 mg BID PO 07/03/17 20:00 08/02/17 19:59 07/05/17 08:50 8.6 MG Hydromorphone HCl (Dilaudid Inj) 0.5 mg Q3H PRN IV 07/04/17 08:00 07/16/17 17:14 07/05/17 05:52 0.5 MG Naloxone HCl (Narcan Inj) 0.4 mg Q1H PRN IV 07/04/17 08:00 08/03/17 07:59 Ranitidine HCl (zANTac TAB) 300 mg HS PO 07/05/17 21:00 08/04/17 20:59 Objective Vital Signs Date Time Temp Pulse Resp B/P (MAP) Pulse Ox O2 Delivery O2 Flow Rate FiO2 12/29/17 08:00 92 Room Air 07/05/17 07:15 36.6 85 18 137/78 (97) 92 Room Air 07/05/17 00:00 Nasal Cannula 2.0 07/04/17 23:29 36.6 71 18 95/66 (76) 95 Nasal Cannula 2.0 07/04/17 20:21 124/76 (92) 96 Nasal Cannula 2.0 07/04/17 18:14 95 Room Air 07/04/17 16:22 96 Nasal Cannula 2.0 07/04/17 15:05 36.5 82 18 78/52 (61) 96 Nasal Cannula 2.0 93/64 (74) 07/04/17 14:05 36.6 76 16 97/67 (77) 98 Nasal Cannula 2.0 Physical Exam General Appearance: WD/WN, no apparent distress, + obese Eyes: normal inspection, PERRL, EOMI Neck: supple, no JVD, trachea midline Respiratory/Chest: normal breath sounds, no respiratory distress, no accessory muscle use Cardiovascular: regular rate, rhythm, no gallop, no murmur Abdomen: non tender, soft, + abnormal bowel sounds (hypoactive ) Extremities: normal inspection, no pedal edema, no calf tenderness Neurologic/Psych: alert, normal mood/affect, oriented x 3 Skin: normal color, no jaundice, no rash Laboratory Results Last 24 Hours Test 07/05/17 07:32 White Blood Count 11.32 K/uL Red Blood Count 3.36 M/uL Hemoglobin 9.7 g/dL Hematocrit 30.4 % Mean Corpuscular Volume 90.5 fL Mean Corpuscular Hemoglobin 28.9 pg Mean Corpuscular Hemoglobin Concent 31.9 g/dl RDW Standard Deviation 45.5 fL RDW Coefficient of Variation 13.7 % Platelet Count 150 K/uL Mean Platelet Volume 10.0 fL Sodium Level 139 mmol/L Potassium Level 3.3 mmol/L Chloride Level 101 mmol/L Carbon Dioxide Level 31 mmol/L Anion Gap 7.0 mmol/L Blood Urea Nitrogen 13 mg/dl Creatinine 0.73 mg/dl Est Creatinine Clear Calc Drug Dose 105.0 ml/min Estimated GFR () 103.8 Estimated GFR (Non- 89.5 BUN/Creatinine Ratio 17.6 Random Glucose 95 mg/dl Calcium Level 7.6 mg/dl Lipase 157 U/L Assessment and Plan Patient is a 62 year old female admitted with pancreatitis. Had similar episode last year. Is s/p cholecystectomy, no ETOH, tobacco abuses, new meds. She had EGD/EUS eval 08/2016 w/o obvious findings for etiology of her pancreatitis but imaging suggestive of chronic pancreatitis. She follows with [facility]. No signs of abd pain on exam though pt reports abd pain still the same. Repeat CT pancreas w slightly increased edema on pancreas uncinate and head but cannot exclude pancreas necrosis or obvious fluid collection. WBC now decreasing to 11K , Lipase normal now. Plans - LR @ 150ml/hr; can decrease rate if tolerating PO intake well. - CL diet, advance as tolerated. - Pancrease per outpt dosing - Symptomatic management w analgesic and antiemetics prn. Try to limit narcotics to minimize risk for ileus development which can occur in pancreatitis as well. Encouraged ambulation - Had BM yesterday w Relistor, may repeat another dose tomorrow if needed for constipation. - No new GI plans, will sign off, pls call for new questions/concerns arise. ATTESTATION: I have performed a history and physical examination of this patient and reviewed the electronic record. Specifically, on physical examination there is persistent epigastric tenderness. I have discussed the case with SERA Soto. The above note reflects my findings, conclusions, and recommendations. Ganesh Okeefe MD
[2017-07-05 15:01] VITALS: BP 132/79; PULSE 83; TEMP 36.6; O2SAT 93
[2017-07-05 16:00] VITALS: O2SAT 94
--- NOTE | 2017-07-05 16:00 | NUR ---
A: pt alert and oriented . she is independent in room w/ steady gait. room air while awake. respirations even and unlabored. pt is voiding w/o issue. small BM today. pt has abdominal pain and tenderness in epigastric area. she is being medicated as per MAR. skin intact. fluids infusing as per order w/o impairment or discomfort. no edema. pt refused clear breakfast d/t pain. pt ringing for assist as needed. will continue care.
[2017-07-05] MEDS ORDERED: ONDANSETRON INJ 2 MG/ML 2 ML VIAL ONE (17:59)
[2017-07-05] MEDS ORDERED: NURSING VERBAL MED ORDER ONE (18:00)
[2017-07-05] MEDS ORDERED: ONDANSETRON INJ 2 MG/ML 2 ML VIAL IV PRN (18:15)
[2017-07-05] MEDS: METHOCARBAMOL 750 MG TAB PO PRN (20:04)
[2017-07-05] MEDS: FLUOXETINE HCL 20 MG CAP PO SCH (20:05)
[2017-07-05] MEDS: ENOXAPARIN 40 MG/0.4 ML SYR SQ SCH (20:06)
[2017-07-05] MEDS: RANITIDINE HCL 150 MG TAB PO SCH (20:06)
--- NOTE | 2017-07-05 20:11 | NUR ---
A: Assumed patient care at 1900. Pt is A/Ox4. Breath sounds clear on room air. Reports pain 10/10. Pt using K-pad as needed. PRN Robaxin given. See eMAR for further pain medications. Independent in the room and hallway. LR infusing through left forearm site @150ml/hr. No other complaints at this time. Call lr and bedside table are within reach. Will continue to monitor.
[2017-07-05 22:59] VITALS: BP 124/84; PULSE 84; TEMP 36.8; O2SAT 90
--- NOTE | 2017-07-05 22:59 | NUR ---
A: Overnight pulse ox reading 85% on 2L O2 via NC. Turned oxygen up to 3L at this time. Will continue to monitor.
[2017-07-06] VITALS (7 sets, daily range): BP systolic 124–160; BP diastolic 75–91; PULSE 82–85; TEMP 36.7; O2SAT 91–93
--- NOTE | 2017-07-06 | NUR ---
A/ID: pt alert and oriented X4, resting in bed at this time. VSS on 3L via NC. denies chest pain, pt SOB on exertion. pt has continuous pulse ox on, reading in the low 90's. pt initially on 2L via NC, but was sating in upper 80's. tolerating 3L. pt complaining of frequent abdominal pain, 9/10 in severity. pt states that IV Toradol works best. lung sounds diminished throughout. LR infusing at 150 ml/hr. pt OOB independently in the room. pt is a potential discharge home today. call lr within reach. will continue to monitor.
[2017-07-06] MEDS: TRAMADOL HCL 50 MG TAB PO PRN (00:29)
[2017-07-06] MEDS: LACTATED RINGER'S 1000ML 1,000 ML IV SCH ×3 (00:29→15:35)
[2017-07-06] MEDS: HYDROmorphone INJ 0.5 MG/0.5 ML SYR IV PRN ×5 (01:14→23:31)
[2017-07-06] MEDS: KETOROLAC TROMETHAMINE 30 MG/ML VIAL IV PRN ×4 (03:14→22:18)
--- NOTE | 2017-07-06 05:20 | NUR ---
A: upon entering pt's room, pt was found to have oxygen off and was sating at 83% on 3L via NC. turned O2 up to 5L via NC, pt's sats came up to 93%. will continue to monitor pt on 5L.
[2017-07-06] MEDS: PANCREAZE (LIPASE 10,500U) CAP PO SCH ×3 (05:24→17:37)
[2017-07-06] MEDS: LEVOTHYROXINE 125 MCG TAB PO SCH (05:24)
[2017-07-06 06:39] LABS: BASO % 0.3 %; BASO ABS # 0.03 K/uL (0-0.2); EOS % 1.5 %; EOS ABS # 0.17 K/uL (0-0.5); HEMATOCRIT 30.8 % (37-47); IG# 0.02 K/uL (0.00-0.02); LYMPH % 7.4 %; LYMPH ABS # 0.85 K/uL (1.2-3.4); MEAN CELL VOLUME 89.8 fL (80-100); MEAN CORPUSCULAR HEMOGLOBIN 29.2 pg (25-34); MEAN CORPUSCULAR HGB CONC 32.5 g/dl (32-36); MEAN PLATELET VOLUME 9.8 fL (7.4-10.4); NEUT % 83.6 %; NEUT ABS # 9.57 K/uL (1.4-6.5); PLATELET COUNT 174 K/uL (130-400); RED CELL DISTRIBUTION WIDTH CV 13.9 % (11.5-14.5); RED CELL DISTRIBUTION WIDTH SD 45.8 fL (36.4-46.3); WHITE BLOOD COUNT 11.44 K/uL (4.8-10.8)
[2017-07-06 07:16] LABS: CALCIUM 7.9 mg/dl (8.5-10.1); CREATININE 0.63 mg/dl (0.60-1.20); POTASSIUM 3.3 mmol/L (3.5-5.1)
[2017-07-06] MEDS: LORATADINE 10 MG TAB PO SCH (08:11)
[2017-07-06] MEDS: BuPROPion XL 300 MG TABCR PO SCH (08:11)
[2017-07-06] MEDS: SENNA 8.6 MG TAB PO SCH ×2 (08:11→19:56)
[2017-07-06] MEDS: DOCUSATE SODIUM 100 MG CAP PO SCH ×2 (08:11→19:56)
[2017-07-06] MEDS: LEVETIRACETAM 500 MG TAB PO SCH ×2 (08:11→19:58)
[2017-07-06] MEDS: CARVEDILOL 6.25 MG TAB PO SCH ×2 (08:11→19:59)
[2017-07-06] MEDS: PANTOprazole SOD 40 MG TAB PO SCH (08:11)
[2017-07-06] MEDS ORDERED: MAGNESIUM SULFATE 1GM / D5W 1 GM in PREMIXED IN D5W 100 ML IV ONE (09:30)
[2017-07-06] MEDS ORDERED: POTASSIUM CHLORIDE 10 MEQ TABCR PO ONE (09:30)
[2017-07-06] MEDS ORDERED: POLYETHYLENE (MIRALAX) 17 GM PACK PO ONE (10:49)
--- NOTE | 2017-07-06 11:10 | Hospitalist Progress Note ---
Hospitalist Progress Note Date of Service Jul 06, 2017. Subjective Pt evaluation today including: conversation w/ patient Pt reports continued epigastric pain, tried a few spoonfuls of full liquids last evening for dinner and could not eat any more food. Has no appetite. Pain is relieved with Toradol for a few hours. Moved her bowels yesterday. Afebrile, WBC count stable from yesterday at 11. Overnight oximetry with profound hypoxia, spent 230 min <88% and 160 continuous minutes < 88% at the longest. All Other Systems: Reviewed and Negative Objective Vital Signs Date Time Temp Pulse Resp B/P (MAP) Pulse Ox O2 Delivery O2 Flow Rate FiO2 07/06/17 09:30 92 Nasal Cannula 3.0 07/06/17 08:30 36.7 84 17 124/75 (91) 92 Nasal Cannula 5.0 07/06/17 08:00 Nasal Cannula 5.0 07/06/17 06:39 2.0 07/06/17 00:00 91 Nasal Cannula 3.0 07/05/17 22:59 36.8 84 20 124/84 (97) 90 Nasal Cannula 2.0 07/05/17 16:00 94 Room Air 07/05/17 15:01 36.6 83 18 132/79 (96) 93 Nasal Cannula 2.0 Physical Exam General Appearance: WD/WN, no apparent distress, + obese Eyes: normal inspection, sclerae normal ENT: hearing grossly normal Neck: trachea midline Respiratory/Chest: normal breath sounds, no respiratory distress, no accessory muscle use, + crackles (mild, at bases bilat) Cardiovascular: regular rate, rhythm, no murmur, + pertinent finding (trace pitting edema legs bilat) Abdomen: normal bowel sounds, soft, + tenderness (very minimal in epigastric region without guarding) Extremities: no calf tenderness Neurologic/Psychiatric: alert, normal mood/affect, oriented x 3 Skin: normal color, warm/dry, no rash Laboratory Results Last 24 Hours Test 07/06/17 06:22 White Blood Count 11.44 K/uL Red Blood Count 3.43 M/uL Hemoglobin 10.0 g/dL Hematocrit 30.8 % Mean Corpuscular Volume 89.8 fL Mean Corpuscular Hemoglobin 29.2 pg Mean Corpuscular Hemoglobin Concent 32.5 g/dl Platelet Count 174 K/uL Mean Platelet Volume 9.8 fL Neutrophils (%) (Auto) 83.6 % Lymphocytes (%) (Auto) 7.4 % Monocytes (%) (Auto) 7.0 % Eosinophils (%) (Auto) 1.5 % Basophils (%) (Auto) 0.3 % Neutrophils # (Auto) 9.57 K/uL Lymphocytes # (Auto) 0.85 K/uL Monocytes # (Auto) 0.80 K/uL Eosinophils # (Auto) 0.17 K/uL Basophils # (Auto) 0.03 K/uL RDW Standard Deviation 45.8 fL RDW Coefficient of Variation 13.9 % Immature Granulocyte % (Auto) 0.2 % Immature Granulocyte # (Auto) 0.02 K/uL Sodium Level 137 mmol/L Potassium Level 3.3 mmol/L Chloride Level 99 mmol/L Carbon Dioxide Level 30 mmol/L Anion Gap 8.0 mmol/L Blood Urea Nitrogen 11 mg/dl Creatinine 0.63 mg/dl Est Creatinine Clear Calc Drug Dose 121.7 ml/min Estimated GFR () 113.0 Estimated GFR (Non- 97.5 BUN/Creatinine Ratio 17.7 Random Glucose 85 mg/dl Calcium Level 7.9 mg/dl Magnesium Level 1.8 mg/dl Assessment and Plan This pt is a 62 yo female with a h/o acute pancreatitis, seizure disorder, obesity, chronic LBP, HTN, HL, anxiety/depression, hypothyroidism, and GERD, who presents with worsening epigastric pain, found to have acute pancreatitis. Her labs on admission showed leukocytosis w/ WBC 14K, H/H normal, UA ok, CMP unremarkable, normal LFTs but Lipase 4000s. CT abd/pelvis showed fat stranding on pancreas head area consistent w pancreatitis. She had similar pancreatitis episode about 1 yr ago. Is s/p cholecystectomy. Had EGD/EUS 08/[address] Beckman after her pancreatitis episode last June and study was grossly unremarkable except echogenic pancreas, non specific gastritis, no mention of divisum, cysts etc. She denies ETOH, tobacco uses, no new meds within last 1-3 months. She follows [facility], had been started on Pancrease in outpt setting. Acute recurrent pancreatitis, with h/o colostomy for diverticulitis and reversal -->pain much improved, repeat CT pancreas 07/03 with increased edema of pancreas , no definite necrosis or abscess, but WBC count was continuing to rise to 17k- now down but remains stable at 11. Lipase continues to trend downward to 157 ( was 4700 on admission). Remains afebrile. UOP improved, ileus resolved. With persistent pain and low appetite -Appreciate GI consultation -continue full liquids today and encouraged her to try to eat, may need to start TPN if not eating soon, prealbumin quite low -added Zantac qhs for possible gastritis -continue pain control-toradol, tramadol, IV dilaudid 0.5mg -continue LR for IVFs but decrease again to 100 mls/hr given UOP has improved -antiemetics prn -continue Panrease enzymes when eating -Relistor given x 1 for constipation and helped -continue docusate,added senna, Miralax -follow CBC, PRP -will need GI outpatient f/u given chronic pancreatitis Acute hypoxemic respiratory failure-related to oversedation with opioids plus likely undiagnosed YARITZA given morbid obesity, thick neck--> doing well now on O2 at nighttime, but also continues to require daytime O2. Overnight oximetry with continuous POx<88% for 6392 seconds at longest duration , with profound hypoxia to the 60s at times. -continue supplemental O2 during day as needed or when napping, and qhs -check overnight oximetry tonight -will need formal sleep study as outpt Hypokalemia/Hypomagnesemia- replace K+ po, Mg IV Acute on Chronic LBP s/p fusion-possibly from bed/positioning, improved -continue same pain meds as for pancreatitis as above -continue Robaxin 750mg prn muscle spasm -heating pad Hypertension--stable to low BP -continue carvedilol 6.25 mg by mouth twice a day with hold parameters Anxiety/depression- with normal grief period due to recent of her - continue Wellbutrin XL 300 mg by mouth daily, fluoxetine 80 mg by mouth daily, and lorazepam -has routine outpt counseling, no evidence of SI here currently Seizure disorder--stable, no seizures since Fall 2015 -continue Keppra 500 mg by mouth twice a day -f/u with Neuro as outpt Hypercholesterolemia-- stable --atorvastatin on hold while with acute pancreatitis Hypothyroidism--last TSH 6.62 in 02/2017 -continue Levothyroxine sodium 125 g by mouth daily -check TSH in 2-3 weeks as outpt GERD--continue pantoprazole 40 mg by mouth daily, added Zantac at bedtime DVT Proph-SCDs, Lovenox PPI Dispo- to home in 1-2 days, will need home O2 most likely nocturnally and possibly daytime, will get 2 step on day of discharge FULL CODE
--- NOTE | 2017-07-06 15:00 | NUR ---
A: pt continues to miss hat placed in toilet Addendum: 07/06/17 at 1501 by Stephanie URBINA Amended: Links added.
[2017-07-06] MEDS: METHOCARBAMOL 750 MG TAB PO PRN (17:37)
[2017-07-06] MEDS: ENOXAPARIN 40 MG/0.4 ML SYR SQ SCH ×2 (19:56→20:01)
[2017-07-06] MEDS: FLUOXETINE HCL 20 MG CAP PO SCH (19:58)
[2017-07-06] MEDS: RANITIDINE HCL 150 MG TAB PO SCH (19:59)
[2017-07-07] MEDS: LACTATED RINGER'S 1000ML 1,000 ML IV SCH ×2 (01:29→09:42)
[2017-07-07] MEDS: HYDROmorphone INJ 0.5 MG/0.5 ML SYR IV PRN ×2 (02:38→06:08)
--- NOTE | 2017-07-07 03:39 | NUR ---
ID: Patient alert & oriented x 4. VSS. Medicated per EMAR for c/o back pain. O2 sats stable on 3L via nc. No c/o SOB or chest pain. IVF infusing. OOB independently with steady gait. D/C plan & date uncertain @ this time. Will continue to monitor.
[2017-07-07] MEDS: TRAMADOL HCL 50 MG TAB PO PRN (05:20)
[2017-07-07] MEDS: LEVOTHYROXINE 125 MCG TAB PO SCH (06:07)
[2017-07-07] MEDS: PANCREAZE (LIPASE 10,500U) CAP PO SCH ×2 (06:07→12:46)
[2017-07-07 06:37] LABS: BASO % 0.1 %; BASO ABS # 0.01 K/uL (0-0.2); EOS % 2.6 %; EOS ABS # 0.21 K/uL (0-0.5); HEMATOCRIT 29.4 % (37-47); HEMOGLOBIN 9.6 g/dL (12.0-16.0); IG# 0.01 K/uL (0.00-0.02); LYMPH % 12.1 %; LYMPH ABS # 0.98 K/uL (1.2-3.4); MEAN CELL VOLUME 90.5 fL (80-100); MEAN CORPUSCULAR HEMOGLOBIN 29.5 pg (25-34); MEAN CORPUSCULAR HGB CONC 32.7 g/dl (32-36); MEAN PLATELET VOLUME 9.4 fL (7.4-10.4); MONO % 9.3 %; MONO ABS # 0.76 K/uL (0.11-0.59); NEUT % 75.8 %; NEUT ABS # 6.16 K/uL (1.4-6.5); PLATELET COUNT 179 K/uL (130-400); RED CELL DISTRIBUTION WIDTH CV 13.7 % (11.5-14.5); RED CELL DISTRIBUTION WIDTH SD 45.4 fL (36.4-46.3); WHITE BLOOD COUNT 8.13 K/uL (4.8-10.8)
[2017-07-07 07:17] LABS: ALBUMIN 2.5 gm/dl (3.4-5.0); CREATININE 0.66 mg/dl (0.60-1.20); POTASSIUM 3.3 mmol/L (3.5-5.1)
[2017-07-07] MEDS ORDERED: NURSING VERBAL MED ORDER ONE ×2 (07:30→09:45)
[2017-07-07] MEDS ORDERED: POTASSIUM CHLORIDE 20 MEQ TABCR PO STA (07:39)
[2017-07-07] MEDS ORDERED: KETOROLAC TROMETHAMINE 30 MG/ML VIAL ONE (07:55)
[2017-07-07] MEDS: SENNA 8.6 MG TAB PO SCH (08:00)
[2017-07-07] MEDS ORDERED: POLYETHYLENE (MIRALAX) 17 GM PACK PO SCH (08:00)
[2017-07-07] MEDS: LORATADINE 10 MG TAB PO SCH (08:00)
[2017-07-07] MEDS: DOCUSATE SODIUM 100 MG CAP PO SCH (08:00)
[2017-07-07] MEDS: BuPROPion XL 300 MG TABCR PO SCH (08:01)
[2017-07-07] MEDS: LEVETIRACETAM 500 MG TAB PO SCH (08:01)
[2017-07-07] MEDS: PANTOprazole SOD 40 MG TAB PO SCH (08:02)
[2017-07-07] MEDS: METHOCARBAMOL 750 MG TAB PO PRN (08:02)
[2017-07-07] MEDS: CARVEDILOL 6.25 MG TAB PO SCH (08:02)
[2017-07-07 08:22] VITALS: BP 145/82; PULSE 79; TEMP 36.6; O2SAT 95
--- NOTE | 2017-07-07 09:48 | NUR ---
Case Management Note- Received consult for discharge planning due to patient needing home 02. Met with patient at bedside. Patient lives alone in a 1 story mobile home. Her just recently . Patient reports independence with ADL's. Discussed need for home 02 and home health. Patient agrees. List of [employer] companies and home health agencies provided. She chose [facility] and [facility]. With permission, referrals made to each. Script and respiratory reports faxed to [facility]. Awaiting determination. Addendum: 07/07/17 at 1027 by Dahlia Reynolds SERV Spoke with Amarilys from [facility]. They received referral and are able to deliver portable tank to the hospital this afternoon the rest of the equipment to patient home. Spoke with Mary at [facility] and they are able to start services Saturday or Saturday. Patient agrees with plan. Phone numbers provided for [facility] and [facility]. Patient has a friend to transport her home today. No further needs at this time. Addendum: 07/07/17 at 1033 by Dahlia Rodolfo SERV Discharge instructions faxed to [facility]
[2017-07-07] MEDS ORDERED: ZNT150 PO (10:17)
[2017-07-07] MEDS ORDERED: ATOR-54 PO (10:17)
[2017-07-07] MEDS ORDERED: ACET-1047 PO (10:17)
[2017-07-07] MEDS ORDERED: HYDR-5688 PO (10:17)
[2017-07-07] MEDS ORDERED: MRLP17 PO (10:17)
[2017-07-07] MEDS ORDERED: RBX750 PO (10:17)
[2017-07-07] MEDS ORDERED: PANCCAP2 PO (10:17)
[2017-07-07] MEDS ORDERED: OXGN (10:19)
--- NOTE | 2017-07-07 10:26 | Discharge Instructions ---
Discharge Instructions Date of Service Jul 07, 2017. Admission Reason for Admission: Acute Pancreatitis Discharge Discharge Diagnosis / Problem: Acute recurrent pancreatitis,Hypoxemic respiratory failure, Sleep apnea Discharge Goals Goal(s): Improve disease control, Diagnostic testing, Therapeutic intervention Activity Recommendations Activity Limitations: as noted below Exercise/Sports Limitations: gradually increase as tolerated . Instructions / Follow-Up Instructions / Follow-Up Please remain on a low fat diet for your recurrent pancreatitis. Follow up with your PCP within 1-2 weeks, and with Gastroenterology within 2-3 weeks. You will need a formal sleep study to get qualified for a CPAP machine for your obstructive sleep apnea. In the meantime, please use the oxygen as directed. You can see either a [employer] Operator- Dr. Jaguar Price, or I believe Dr. Troncoso of [facility] does Sleep Medicine as well. Please get a referral from your PCP for this. Current Hospital Diet Patient's current hospital diet: Low Fat Diet Discharge Diet Recommended Diet: Low Fat Diet Procedures Procedures Performed: CT abdomen/pelvis Pending Studies Studies pending at discharge: no Laboratory Results Lipid Panel Test 07/03/17 06:48 Range/Units Triglycerides Level 47 0-150 mg/dl Cholesterol Level 144 0-200 mg/dl HDL Cholesterol 65 mg/dl Cholesterol/HDL Ratio 2.2 LDL Cholesterol, Calculated 70 mg/dl Medical Emergencies . Who to Call and When: Medical Emergencies: If at any time you feel your situation is an emergency, please call 911 immediately. . Non-Emergent Contact Non-Emergency issues call your: Primary Care Provider, Senior Executive Compensation Analyst Call Non-Emergent contact if: temperature is above 100.5, your pain is not controlled, your pain is worsening, your pain is unusual for you, your pain is concerning you, you have any medication questions . . "Provider Documentation" section prepared by Jemma Lowe. . VTE Core Measure Inpt VTE Proph given/why not?: Enoxaparin (Lovenox)SQ, SCD's [place] Drug Monitoring Program Search Results: patient reviewed within database (she cannot be found in the database despite admitting that she is on chronic hydrocodone by her PCP)
--- NOTE | 2017-07-07 10:42 | Discharge Summary ---
Discharge Summary Date of Service Jul 07, 2017. Discharge Summary Admission Date: Jul 02, 2017 at 00:42 Discharge Date: Jul 07, 2017 Discharge Disposition: Home with services Principal Diagnosis: Acute recurrent pancreatitis Problems/Secondary Diagnoses: Acute on likely chronic hypoxemic respiratory failure YARITZA Hypoxia seizure disorder obesity, BMI 40.6 chronic LBP HTN HL anxiety/depression hypothyroidism GERD leukocytosis h/o colostomy for diverticulitis and reversal ileus secondary to pancreatitis and opioid use constipation-resolved Hypokalemia Hypomagnesemia Acute on Chronic LBP s/p fusion Immunizations: Have You Had Influenza Vaccine: Yes History of Tetanus Vaccine?: Yes History of Pneumococcal: Yes History of Hepatitis B Vaccine: No Procedures: CT abd/pel CT pancreas Chest xray Consultations: Gastroenterology Medication Reconciliation New Medications: Acetaminophen (Mapap) 325 Mg Tab 650 MG PO Q4 PRN for Pain for 30 Days OTC Home O2 Therapy (Oxygen) Gas 2 LITERS NA PRN for 30 Days 2L with exertion, 3L with naps and continuous at nighttime Hydrocodone/Acetaminophen 5MG/325MG (Mizpah 5MG/325MG) Tab 1-2 TABLET PO Q6H PRN for Pain for 2 Days, #15 TAB Methocarbamol (Methocarbamol) 750 Mg Tab 750 MG PO TID PRN for lower back pain/spasm for 30 Days she has this at home Pancrelipase (Lipase-Protease- (Pancreaze) 1 Cap Cap 2 CAP PO AC for 30 Days, #180 CAP Polyethylene (Miralax) 17 Gm Pow 17 GM PO DAILY PRN for Constipation for 30 Days OTC Ranitidine HCl (Ranitidine HCl) 150 Mg Tab 300 MG PO HS for 30 Days, #60 TAB Changed Medications: Atorvastatin (Lipitor) 20 Mg Tab 20 MG PO DAILY for 30 Days, #30 TAB (Medication details modified) RESTART THIS ONCE ABDOMINAL PAIN COMPLETELY RESOLVED Continued Medications: Bupropion (Wellbutrin-Xl) 300 Mg Tabcr 300 MG PO DAILY, TAB Carvedilol (Coreg) 6.25 Mg Tab 6.25 MG PO BID, TAB Docusate Sodium (Docusate Sodium) 100 Mg Cap 100 MG PO BID, CAP Ergocalciferol (Drisdol) 50,000 Unit Cap 65028 INTER.UNIT PO WK TAKE THIS MEDICATION EVERY SATURDAY Fluoxetine (Prozac) 40 Mg Cap 80 MG PO HS, CAP Levetiracetam (Keppra) 500 Mg Tab 500 MG PO BID, TAB Levothyroxine Sodium (Synthroid) 125 Mcg Tab 125 MCG PO DAILY, TAB Loratadine (Claritin) 10 Mg Tab 10 MG PO DAILY, TAB Lorazepam (Ativan) 1 Mg Tab 1 MG PO TID PRN for Anxiety, TAB Omeprazole (Prilosec) 40 Mg Cap 40 MG PO DAILY, CAP Referrals At Discharge Follow up Referrals: Ambulance Assistant Referral - Within 1-2 Weeks with Quique Amador D.O. Neurologist Referral - Within 2 Weeks with Osman Troncoso M.D. (MEDICINE) Fishing Rod Trimmer Referral - Within 2 Weeks with Jaguar Price, DO Discharge Exam Pt feeling much improved on day of discharge. Epigastric pain is mild-moderate, she is tolerating a low fat diet. 2-step test for O2 reveals a need for 2 LNC with exertion, remains POx 90% at rest so can take O2 off then, and will need 3LNC nocturnally and with naps. O2 arranged for delivery prior to discharge. Moved her bowels several times yesterday and this also improved her abdominal pain. SHe is ready to go home. No CP or SOB, no other concerns. ROS otherwise completely reviewed and is negative in all systems Physical Exam General Appearance: WD/WN, no apparent distress, + obese Eyes: normal inspection, sclerae normal ENT: hearing grossly normal Neck: trachea midline Respiratory/Chest: normal breath sounds, no respiratory distress, no accessory muscle use, + crackles (mild, at bases bilat) Cardiovascular: regular rate, rhythm, no murmur, + pertinent finding (trace pitting edema legs bilat) Abdomen: normal bowel sounds, soft, NO tenderness Extremities: no calf tenderness Neurologic/Psychiatric: alert, normal mood/affect, oriented x 3 Skin: normal color, warm/dry, no rash Hospital Course This pt is a 62 yo female with a h/o acute pancreatitis, seizure disorder, obesity, chronic LBP, HTN, HL, anxiety/depression, hypothyroidism, and GERD, who presents with worsening epigastric pain, found to have acute pancreatitis. Her labs on admission showed leukocytosis w/ WBC 14K, H/H normal, UA ok, CMP unremarkable, normal LFTs but Lipase 4000s. CT abd/pelvis showed fat stranding on pancreas head area consistent w pancreatitis. She had similar pancreatitis episode about 1 yr ago. Is s/p cholecystectomy. Had EGD/EUS 08/[address] Beckman after her pancreatitis episode last June and study was grossly unremarkable except echogenic pancreas, non specific gastritis, no mention of divisum, cysts etc. She denies ETOH, tobacco uses, no new meds within last 1-3 months. She follows [facility], had been started on Pancrease in outpt setting. Acute recurrent pancreatitis, with h/o colostomy for diverticulitis and reversal -->pain much improved, repeat CT pancreas 07/03 with increased edema of pancreas , no definite necrosis or abscess, but WBC count was continuing to rise to 17k- now down but remains stable at 11. Lipase continues to trend downward to 157 ( was 4700 on admission). Remains afebrile. UOP improved, ileus resolved. Received IVFs for hydration, IV toradol and dilaudid prn. Abdominal pain improved and was tolerating a low fat diet on day of discharge. -Appreciate GI consultation-should f/u with Dr. Amador as outpt -continue low fat diet at home -added Zantac qhs for worsening GERD symptoms while on toradol here-continue at home -continue pain control at home with tylenol, hydrocodone/APAP Rx given for 2 day supply -continue Pancrease enzymes with meals after discharge -Relistor given x 1 for constipation and helped -continue docusate, Miralax Acute hypoxemic respiratory failure-related to oversedation with opioids plus likely undiagnosed YARITZA given morbid obesity, thick neck--> doing well now on O2 at nighttime, but also continues to require daytime O2 with naps and with exertion. 2-step performed and home O2 ordered. Overnight oximetry with continuous POx<88% for 6392 seconds at longest duration , with profound hypoxia to the 60s at times on 2LNC -continue supplemental O2 during day as needed or when napping, and qhs -will need formal sleep study as outpt as will need CPAP -f/u Pulm as outpt Hypokalemia/Hypomagnesemia- replaced K+ po, Mg IV Acute on Chronic LBP s/p fusion-possibly from bed/positioning, improved -continue same pain meds as for pancreatitis as above -continue Robaxin 750mg prn muscle spasm -heating pad Hypertension--stable to low BP -continue carvedilol 6.25 mg by mouth twice a day with hold parameters Anxiety/depression- with normal grief period due to recent of her - continue Wellbutrin XL 300 mg by mouth daily, fluoxetine 80 mg by mouth daily, and lorazepam -has routine outpt counseling, no evidence of SI here currently Seizure disorder--stable, no seizures since Fall 2015 -continue Keppra 500 mg by mouth twice a day -f/u with Neuro as outpt Hypercholesterolemia-- stable --atorvastatin on hold while with acute pancreatitis--> can restart after discharge when abd pain completely resolved Hypothyroidism--last TSH 6.62 in 02/2017 -continue Levothyroxine sodium 125 g by mouth daily -check TSH in 2-3 weeks as outpt GERD--continue pantoprazole 40 mg by mouth daily, added Zantac at bedtime Stable for discharge to home today Total Time Spent: Greater than 30 minutes This includes examination of the patient, discharge planning, medication reconciliation, and communication with other providers. Discharge Instructions Please refer to the electronic Patient Visit Report (Discharge Instructions) for additional information. Follow-Up PCP within 1-2 weeks GI within 2 weeks Sleep Medicine/Pulm within 2 weeks-needs formal sleep study Additional Copies To Quique Amador D.O.; Jennifer. Billy E. PA-C
[2017-07-07 12:22] VITALS: BP 145/82; PULSE 79; TEMP 36.6; O2SAT 95
--- NOTE | 2017-07-07 13:31 | NUR ---
a: patient discharged to home per md orders. saline lock removed- catheter intact. discharge instructions and medications discussed with patient. portable o2 was delivered and explained to patient. patient taken to entrance via wheelchair by volunteer with all belongings.
[2017-07-07] MEDS ORDERED: KETOROLAC TROMETHAMINE 30 MG/ML VIAL IV PRN (14:00)
--- NOTE | 2017-07-09 16:00 | NUR ---
associate merchandiser [facility]: I received notification that [facility] called to notify us that Pancreaze requires a prior authorization. I call Maria Antonia at [phone] and request to begin the prior auth process. I am told that they will fax me the form to complete and fax back. I explain that pt was hospitalized and I am concerned that she may be harmed by waiting because she has been without this med since 07/07/17. I ask if we can expedite the request. The rep tells me that she will call the [facility] and approve a 5 day supply of this med while we work on the authorization process. Addendum: 07/09/17 at 1612 by [employer] I call the pharmacy and I am told that the insurance company actually approved a 7 day supply of Pancreaze but they have to order it - ready for curing pickling packer tomorrow morning. I call pt to inform her that I will be working on authorization for the Pancreaze and the 7 day emergency supply will be ready for curing pickling packer tomorrow morning. Addendum: 07/10/17 at 1527 by [employer] I complete the form for the Pancreaze authorization, Dr. Cruz signs it, and I fax it (along w/ DC summary and DC instructions) to Maria Antonia at [phone]. Addendum: 07/12/17 at 1600 by [employer] I called [employer] and I was told that the authorization was denied because the pt had not tried and failed 3 formulary alternatives. The alternative rx's are: Creon, Zenpep, and Pancrealipase 5000. I will notify Dr. Lowe of this next week. Addendum: 07/15/17 at 0936 by [employer] I spoke w/ Dr. Lowe regarding the insurance denial of Pancreaze and the insurance's willingness to cover the 3 alternate rx's - see above. Dr. Lowe orders Creon 6000 units 1 capsule po before meals (tid) for 30 days - #90 w/ no refills. I call this to pt's outpatient pharmacy. The pharmacist tells me that the pt did not curing pickling packer the 7 day supply of the Pancreaze. The pharmacist will return those meds back to the shelf and fill the Creon. I call pt and leave a message telling her about the insurance denial, Dr. Lowe ordered the Creon, and it should be ready to curing pickling packer later today. I also leave my contact info and encourage the pt to call me w/ any questions or concerns.
== END 2017-07-07 13:32 | disposition home health service (06) | DRG 438 ==
LOC: C.EDB 21:18 → C.MED 07-02 00:42 → ENRESERV 07-02 00:56 → C.4E 07-02 21:42
PROVIDERS: ADMIT Hospitalist; ATTEND Family Medicine
DX: K85.90 Acute pancreatitis without necrosis or infection, unspecified (principal); J96.21 Acute and chronic respiratory failure with hypoxia; K56.7 Ileus, unspecified; K86.1 Other chronic pancreatitis; I10 Essential (primary) hypertension; Z83.3 Family history of diabetes mellitus; Z87.891 Personal history of nicotine dependence; K21.9 Gastro-esophageal reflux disease without esophagitis; K59.00 Constipation, unspecified; G40.909 Epilepsy, unspecified, not intractable, without status epilepticus; E78.5 Hyperlipidemia, unspecified; E03.9 Hypothyroidism, unspecified; T40.2X5A Adverse effect of other opioids, initial encounter; Y92.019 Unspecified place in single-family (private) house as the place of occurrence of the external cause; E87.6 Hypokalemia; E83.42 Hypomagnesemia; M54.5 Low back pain; Z98.1 Arthrodesis status

== ENCOUNTER → 2017-07-17 | Outpatient (CLI) | payer OTHER ==
[~2017-07-17] MED LIST changes: +ACET-1047 PO; +ATV/1 PO; -CLC100 PO; -CLON1TAB10 PO; +CLR10 PO; +DOCU100C31 PO; +ERGO50002 PO; -GABA-1218 PO; -LEVE500T PO; +LEVE500T13 PO; +MRLP17 PO; -OMEP40CA PO; +OMEP40CA41 PO; +OXGN; +PANCCAP2 PO; +RBX750 PO; +ZNT150 PO; -ZOLP5TAB PO; -[UNRECOGNIZED DRUG - CODE] PO
--- NOTE | 2017-07-18 05:45 | PAP/PSG TECHNICIAN REPORT ---
[facility] Applications Developer Polysomnogram Report Study name: None Report date: 07/18/2017 Study date: 07/17/2017 Referring Physician: Dr. Jemma Lowe Name: JULIA PALM Interpreting Physician: Jaguar Price D.O. Date of : 1955 Applications Developer: Elaina Villar RPSGT. Sex: Female Age: 62 Study Type: PSG Weight: 251 lbs Height: 62 years, Height 5' 6" BMI: 40.51 Medications: ACETAMINOPHEN 325 MG, O2 GAS 2 LPM, METHOCARBAMOL 750 MG, MIRALAX, RANITIDINE 150 MG, ATORVASTATIN 20 MG, BUPROPION 300 MG, CARVEDILOL 6.25 MG, DOCUSATE SODIUM 100 MG, VIT D 91208 UNIT, KEPPRA 500 MG, LEVOTHYROXINE 125 MCG, LORATIDINE 10 MG, LORAZEPAM 1 MG Patient History 62 yr-old female here for a baseline study. She has a history of loud snoring, witnessed apneas, and respiratory failure. The test was started on room air. ETCO2 testing is included in this study. Room 5 Parameters Monitored NPSG: E1-M2, E2-M1, Fp1-M2, Fp2-M1, F3-M2, F4-M2, F4-M1, C3-M2, C4-M2, C4-M1, O1-M2, O2-M2, O2-M1, T3-M2, T4-M1, P3-M2, P4-M1, CHIN1, CHIN2, HR, EKG, Legs, PFLOW, SNOR, FLOW, CFLOW, Tidal Volume, THOR, ABDO, SpO2, PLTH, CPRESS, ETCO2 Wave, ETCO2, pH Sleep Architecture Sleep Stages Time at Lights Off 9:44:24 PM STAGES Time (min.) TST (%) Time at Lights On 5:31:54 AM Wake 84.5 -- Total Recording Time (TRT) 467.50 min. N1 88.0 23 Total Sleep Period (TSP) 403.0 min. N2 237.0 62 Total Sleep Time (TST) 383.0min. N3 0.0 0 Awake Time 84.5 min. REM 58.0 15 Wake after Sleep Onset 22.5 min. Sleep Efficiency (SE) 82 % Sleep Onset Latency (ANNIKA) 62.0 min. Number of Stage 1 Shifts None Awakenings 8 Stage Changes 57 Number of REM periods 6 REM 58.0 15 REM Latency 135.5 min. NREM 325.0 85 Body Position Analysis Supine Right Left Side Prone Vertical Total Sleep Time (min.) 33.3 161.2 221.8 383.00 0.0 0.4 Total Sleep Time (%) 0% 42% 58% 100 0% N/A% Total Sleep Time REM (min.) 0.0 8.0 50.0 None 0.0 0.0 Total Sleep Time NREM (min.) 0.0 153.2 171.8 None 0.0 0.0 Intermittent Wake (min.) 33.3 45.1 5.7 None 0.0 0.4 Total Sleep Period (%) 0% None None None None None Arousals Myoclonus (PLM) * Events Count Index Events Count Index Spontaneous 27 4 Events Awake (PLMW) 81 57.5 Respiratory 22 3.8 Events Asleep w/ Arousal (PLMA) 7 1.1 PLM 7 1 Events Asleep w/o Arousal (PLMS) 111 17.4 Snoring 20 3 Total Asleep 118 18.5 Total 73 11 Total 199 26 Respiratory Analysis * CA OA MA CH H RERA Total Count 0 1 0 0 153 5 154 Index 0.0 0.2 0.0 0 24.0 1 24.9 Mean Duration 0.0 13.2 0.0 0.00 23.6 16.4 23.3 Longest Duration 0.0 13.2 0.0 0.00 0.0 19.2 59.7 Respiratory Event Summary Total Supine ~Supine Right Left Prone REM NREM Apneas Count 1 N/A 1 0 1 N/A 0 1 Index 0.2 N/A 0 0.0 0.3 N/A 0 0 Hypopneas (4% Desat) Count 153 N/A 153 33 120 N/A 17 136 Index 24.0 N/A 24 12.3 32.5 N/A 17.6 25.1 Apneas & All Hypopneas Count 154 N/A 154 33 121 N/A 17 137 Index 24.1 N/A 24 12 33 N/A 17.6 25.3 Respiratory Events (Sales And Marketing Manager+All Hyp+RERA) Count 154 N/A 159 35 124 N/A 17 137 Index 24.9 N/A 25 13.0 33.5 N/A 20.7 25.7 Respiratory Related Arousal Count 22 N/A 24 2 22 N/A 4 20 Index 3.8 N/A 4 1 6 N/A 4 4 Snoring Analysis Supine Right Left Prone REM NREM Total Snore duration 63.1 min Snores count N/A 1,318 1,544 N/A 161 2,701 2,862 Snore mean duration 1.3 Sec Snores index N/A 491 418 N/A 166.6 498.6 448.4 TST with snoring (%) 16.5% SpO2 Analysis Total REM NREM Awake <50% 0.0 min. 0.0 min. 0.0 min. 0.0 min. 51 - 60% 0.0 min. 0.0 min. 0.0 min. 0.0 min. 61 - 70% 0.0 min. 0.0 min. 0.0 min. 0.0 min. 71 - 80% 0.0 min. 0.0 min. 0.0 min. 0.0 min. 81 - 90% 194.4 min. 41.0 min. 147.7 min. 5.7 min. 91 - 100% 267.7 min. 17.0 min. 177.3 min. 73.4 min. Average 91 89 91 92 Minimum SpO2 83 84 83 86 Desaturation Event Index 24.5 25.9 28.6 7.8 # Desat. Events below 89% 136 20 111 5 Time(%) with Saturation below 89% 12.8 3.8 8.7 0.3 Time(min.) with Saturation below 89% 59.0 17.6 40.2 1.2 Heart Rate Analysis End Tidal CO2 Analysis Min (bpm) Max (bpm) Average (bpm) TSP (mins) % of TSP Awake 52 94 65 Above 55 mmHg 0.0 0.0 NREM 51 104 66 50-55 mmHg 0.0 0.0 REM 49 91 65 45-50 mmHg 14.7 3.9 Overall 49 104 66 40-45 mmHg 170.1 44.4 35-40 mmHg 147.0 38.4 30-35 mmHg 40.7 10.6 Average ETCO2 0.4 Supplemental O2 Values Minimum O2 level: None Value Start Time End Time Applications Developer Comments Ms. Palm slept in the right and left positions. No cardiac arrhythmias were noted. PLMs were noted. No bruxism noted. Snoring was noted and scored as a 3 on a scale of 1 through 5. (0=no snoring, 5=snoring loud enough to be heard through a closed door or down the riggs way) She awoke to use the restroom two times during the night. Ms. Palm stated that she slept a little worse than usual. The final report will be interpreted and signed by a sleep physician. The completed physician report will then be placed in the patient medical record. Therapy (cm H2O) 0 TIB (min.) 467.5 TST (min.) 383.0 Sleep Onset (min.) 62.0 REM Onset From Sleep (min.) 135.5 Sleep Efficiency % 82 Wakefulness (%) 18 Wakefulness (min.) 84.5 NREM 1 (%) 23 NREM 1 (min.) 88.0 NREM 2 (%) 62 NREM 2 (min.) 237.0 NREM 3 (%) 0 NREM 3 (min.) 0.0 REM (%) 15 REM (min.) 58.0 # Arousals 73 Arousal Index 11 # Snore 2,862 Snore Index 448.4 AHI 24.1 AHI Supine N/A AHI Non-Supine 24 NREM AHI 25.3 REM AHI 17.6 RDI 24.9 # Obstructive Apnea 1 # Central Apnea 0 # Mixed Apnea 0 # Hypopneas 153 RERAs 5 Total Respiratory Events 159 Time Below SpO2 89% (min.) 57.8 Mean NREM SpO2 (%) 91 Mean REM SpO2 (%) 89 Mean Sleep SpO2 (%) 90 Min NREM SpO2 (%) 83 Min REM SpO2 (%) 84 Position Supine (min.) 33.3 Position Non-supine (min.) 383.0 LM Index Sleep 18.5 LM Index NREM 17.2 LM Index REM 25.9 Mean Heart Rate (bpm) 66 Min Heart Rate (bpm) 49
--- NOTE | 2017-07-20 11:03 | Sleep Study ---
Sleep Study Report Date of Service: 07/17/2017 Sleep Study Report CLINICAL DATA: The patient is referred for the sleep study by Dr. Jemma Lowe. She is a 62- year-old female who was recently hospitalized for respiratory failure associated with pancreatitis. There is a history of snoring and observed apneas. Her BMI is elevated at 40.51. This was an in-lab overnight polysomnography. SLEEP ARCHITECTURE: The total sleep period was 403 minutes. The total sleep time was 383 minutes. The sleep efficiency was mildly reduced to 82 percent. The sleep latency was prolonged to 62 minutes. It is notable that the patient was reading for the 1st 30 minutes of her study. Wake after sleep onset was 22.5 minutes. The REM latency was prolonged to 135.5 minutes. Sleep consisted of stage N1 23 percent , stage N2 62 percent, stage N3 0 percent, stage REM 15 percent. AROUSAL DATA: The patient had a total of 73 arousals including 27 spontaneous arousals, 22 respiratory arousals, 7 PLM arousals, and 20 snoring arousals. The arousal index was 11. PLM DATA: Patient had a total of 118 periodic limb movements of sleep for a PLM index of 18.5. There were 7 arousals associated with limb movements for a PLM arousal index of 1.1. EKG: The underlying cardiac rhythm was normal sinus. The cardiac rates 49-91 beats per minute. The average heart rate was 66 beats per minute. No a arrhythmias were noted. RESPIRATORY DATA: The patient had a total of 154 respiratory events including 1 obstructive apnea and 153 hypopneas. Hypopneas were scored according to the 4 percent desaturation rule. The apnea was 13.2 seconds. The mean duration of the hypopneas was 23.6 seconds. The patient also had 5 RERAs. The apnea-hypopnea index was moderately elevated at 24.1. This reflects moderate obstructive sleep apnea. OXIMETRY DATA: The average saturation for the night was 91 percent. The minimum saturation was 83 percent. There was a total of 59 minutes with saturations less than 89 percent. CHARTER COACH DRIVER COMMENTS: The patient slept on the right and left positions. No cardiac arrhythmias were noted. PLMS were noted. No bruxism noted. Snoring was noted and scored as a 3 on a scale of 1 through 5. She awakened to use the restroom 2 times during the night. IMPRESSIONS: 1. Moderate obstructive sleep apnea COMMENTS: The patient had moderate sleep apnea. Most of the events occurred during the 2nd half of the night. She had modest oxygen desaturations. Her sleep efficiency was good except for the delay in sleep onset. Patient does have a history of hypertension. RECOMMENDATIONS: 1. It is advised that the patient be given a trial of nasal CPAP. This could be accomplished by referral to the Sleep Lab for an in-lab CPAP titration study. Alternatively she could be treated with auto CPAP. 2. Weight loss is advised in light of the severe elevation of body mass index at 40.51. 3. Consideration could be given to a sleep medicine evaluation. Copies To 1: Jaguar Price DO; Jennifer. Wenceslao, E. MER; Jemma Lowe MD
== END | disposition home or self-care (01) ==
LOC: C.NEUR 21:00
PROVIDERS: ATTEND Internal Medicine
DX: G47.33 Obstructive sleep apnea (adult) (pediatric) (principal); E66.9 Obesity, unspecified; Z68.41 Body mass index [BMI] 40.0-44.9, adult; J96.21 Acute and chronic respiratory failure with hypoxia

== ENCOUNTER → 2018-02-24 | Outpatient (CLI) | payer OTHER ==
[~2018-02-24] MED LIST changes: -ERGO50002 PO; +[UNRECOGNIZED DRUG - CODE] PO
--- NOTE | 2018-02-25 08:32 | DIAGNOSTIC IMAGING REPORT ---
(BARIUM SWALLOW) ESOPHAGUS CLINICAL HISTORY: 63 years-old Female with K21.9 GERD without [id number] Dysphagia, oropharyngeal ph. TECHNIQUE: Barium contrast and effervescent crystals were administered to the patient under fluoroscopic examination. Barium tablet also administered. Multiple images were obtained and submitted for review. FLUOROSCOPY TIME: 1.1 minutes. 24 images were submitted. COMPARISON: None. FINDINGS: During deglutition, contrast material flowed freely through the cervical esophagus. There is a circumferential esophageal web noted within the upper cervical esophagus near the cricopharyngeus muscle at the level of C5-C6. This results in moderate luminal narrowing. Barium tablet flows freely through the esophagus. Mid to distal esophagus is well coated and distended. Mild tertiary contractions about the distal esophagus. No hiatal hernia. Moderate to severe gastroesophageal reflux extends to the upper thoracic esophagus. The GE junction is normal in appearance. IMPRESSION: 1. Circumferential esophageal web noted within the upper cervical esophagus near the cricopharyngeus muscle at the level of C5-C6 results in moderate luminal narrowing. 2. Mild esophageal dysmotility. 3. Moderate to severe gastroesophageal reflux. The above report was generated using voice recognition software. It may contain grammatical, syntax or spelling errors. Electronically signed by: Casper Lloyd M.D. 02/24/2018 10:32 AM Dictated Date/Time: 02/24/2018 10:26 AM
== END | disposition home or self-care (01) ==
LOC: C.RAD 09:46
PROVIDERS: ATTEND Registered Nurse
DX: K21.9 Gastro-esophageal reflux disease without esophagitis (principal); R13.12 Dysphagia, oropharyngeal phase